=== PATIENT | female | born 1985 | race Caucasian/White ===

== ENCOUNTER 2020-12-27 16:19 | Inpatient (IN) | payer BC ==
[2020-12-27 17:34] LABS: BLOOD UREA NITROGEN,BUN 4 mg/dL (7.0-18.0); CARBON DIOXIDE,CO2 24.5 mmol/L (21.0-32.0); CHLORIDE,CL 103 mmol/L (98-107); GLUCOSE RANDOM 83 mg/dL (74-106); POTASSIUM,K 3.2 mmol/L (3.5-5.1); SODIUM,NA 139 mmol/L (136-145)
[2020-12-27] MEDS ORDERED: Misoprostol 200 MCG Tab PO PRN (18:53)
[2020-12-27] MEDS ORDERED: Sodium Chloride 0.9% 10 ML SDV IV PRN (18:53)
[2020-12-27] MEDS ORDERED: Ondansetron 4 MG/2 ML SDV IVPUSH PRN (18:53)
[2020-12-27] MEDS ORDERED: Sodium Chloride 0.9% 2.5 ML Syringe FLUSH PRN (18:53)
[2020-12-27] MEDS ORDERED: Nalbuphine 10 MG/1 ML Vial IVPUSH PRN (18:53)
[2020-12-27] MEDS ORDERED: Water For Irrigation,Sterile 1,000 ML Container IRR PRN (18:53)
[2020-12-27] MEDS ORDERED: Methylergonovine 0.2 MG/1 ML Amp IM PRN (18:53)
[2020-12-27] MEDS ORDERED: Butorphanol 1 MG/ML SDV IVPUSH PRN (18:53)
[2020-12-27] MEDS ORDERED: Sodium Chloride 0.9% 10 ML Syringe FLUSH PRN (18:53)
[2020-12-27] MEDS ORDERED: Tranexamic Acid 1,000 MG in Sodium Chloride 0.9% 100 ML IV PRN (18:53)
[2020-12-27] MEDS ORDERED: Terbutaline 1 MG/ML SDV SUBCUT PRN (18:53)
[2020-12-27] MEDS ORDERED: Lidocaine 1% 50 ML MDV INJECT PRN (18:53)
[2020-12-27] MEDS ORDERED: Carboprost Tromethamine 250 MCG/1 ML Amp IM PRN (18:53)
[2020-12-27] MEDS ORDERED: Oxytocin/0.9 % Sodium Chloride 30 UNIT/500 ML BAG IV SCH ×2 (19:00)
[2020-12-27] MEDS ORDERED: Labetalol 100 MG/20 ML MDV IVPUSH PRN (19:17)
[2020-12-27] MEDS ORDERED: Misoprostol 25 MCG (1/4 of 100 MCG) Tab VAG PRN (20:00)
--- NOTE | 2020-12-27 21:00 | PCM.LDHP ---
L&D History of Present Illness - General Date of Service: 12/27/20 Admit Problem/Dx: Patient Status Order with Admit Dx/Problem 12/27/20 16:23 Patient Status [ADT] Routine 12/27/20 18:54 Patient Status [ADT] Routine Admission Diagnosis/Problem Admission Diagnosis/Problem Source of Information: Patient History Limitations: Reports: No Limitations - History of Present Illness Introduction:: Patient presents to clinic and has been followed with mild gestational hypertension. At clinic, BP 150/90s. No protein on urine. Has received steroids for FLM all ready given the progressing hypertension. She denies headache or visual changes. She feels swollen. Notes good movement. Denies contractions. - Related Data Allergies/Adverse Reactions: Allergies Allergy/AdvReac Type Severity Reaction Status Date / Time sulfamethoxazole Allergy Rash Verified 12/27/20 16:34 [From ] trimethoprim [From ] Allergy Rash Verified 12/27/20 16:34 Home Medications: Home Meds Ferrous Sulfate, Dried [Iron] 160 mg PO DAILY 12/27/20 [History] Vits #93/Iron Fum/FA [ Formula Tablet] 1 each PO DAILY 12/27/20 [History] Past Medical History - Past Health History Medical/Surgical History: Denies Medical/Surgical History Genitourinary History: Reports: Other (See Below) (Medullary sponge kidney) - Past Surgical History HEENT Surgical History: Reports: Oral Surgery (wisdom teeth extraction) GI Surgical History: Reports: Appendectomy Female Surgical History: Reports: Breast Implant Social & Family History - Family History Family Medical History: No Pertinent Family History - Tobacco Use Tobacco Use Status *Q: Never Tobacco User - Alcohol Use Alcohol Use History: No - Recreational Drug Use Recreational Drug Use: No - Living Situation & Occupation Living situation: Reports: Occupation: Employed H&P Review of Systems - Review of Systems: Review Of Systems: Comprehensive ROS is negative, except as noted in HPI. L&D Exam - Exam Exam: See Below - Vital Signs Weight: 86.183 kg - OB Specific Movement: Active Heart Tones: Present Heart Tones per Min: 140 Heart Rate (FHR) Variability: Moderate (6-25 bmp) Presentation: Vertex - Alvares Score Alvares Score Cervix Position: Midposition Alvares Score Consistency: Medium Alvares Score Effacement: 51-70% Alvares Score Dilation: Closed Alvares Score 's Station: -3 Alvares Score Total: 4 - Exam General: Alert, Oriented Neck: Supple, Trachea Midline Lungs: Normal Respiratory Effort Cardiovascular: Regular Rate, Regular Rhythm GI/Abdominal Exam: Normal Bowel Sounds, Soft, Non-Tender Genitourinary: Normal external exam Back Exam: No: CVA Tenderness (L), CVA Tenderness (R) Extremities: Pedal Edema (1+) Skin: Warm, Dry, Intact Neurological: Cranial Nerves Intact, Reflexes Equal Bilateral DTR: 2+: Patella (L), Patella (R) Psychiatric: Alert, Normal Affect, Normal Mood - Patient Data Lab Results Last 24 hrs: Laboratory Results - last 24 hr 12/27/20 12/27/20 Range/Units 16:43 16:43 WBC 9.41 (4.0-11.0) K/uL RBC 3.69 L (4.30-5.90) M/uL Hgb 10.7 L (12.0-16.0) g/dL Hct 32.6 L (36.0-46.0) % MCV 88.3 (80.0-98.0) fL MCH 29.0 (27.0-32.0) pg MCHC 32.8 (31.0-37.0) g/dL RDW Std Deviation 45.7 (28.0-62.0) fl RDW Coeff of Matheus 14 (11.0-15.0) % Plt Count 264 (150-400) K/uL MPV 10.80 (7.40-12.00) fL Neut % (Auto) 67.0 (48.0-80.0) % Lymph % (Auto) 23.3 (16.0-40.0) % Ralls % (Auto) 8.4 (0.0-15.0) % Eos % (Auto) 1.1 (0.0-7.0) % Baso % (Auto) 0.2 (0.0-1.5) % Neut # (Auto) 6.3 H (1.4-5.7) K/uL Lymph # (Auto) 2.2 (0.6-2.4) K/uL Ralls # (Auto) 0.8 (0.0-0.8) K/uL Eos # (Auto) 0.1 (0.0-0.7) K/uL Baso # (Auto) 0.0 (0.0-0.1) K/uL Nucleated RBC % 0.0 /100WBC Nucleated RBCs # 0 K/uL Sodium 139 (136-145) mmol/L Potassium 3.2 L (3.5-5.1) mmol/L Chloride 103 (98-107) mmol/L Carbon Dioxide 24.5 (21.0-32.0) mmol/L BUN 4 L (7.0-18.0) mg/dL Creatinine 0.5 L (0.6-1.0) mg/dL Est Cr Clr Drug Dosing 119.63 mL/min Estimated GFR (MDRD) > 60.0 ml/min Glucose 83 (74-106) mg/dL Uric Acid 3.9 (2.6-7.2) mg/dL Calcium 8.8 (8.5-10.1) mg/dL Total Bilirubin 0.2 (0.2-1.0) mg/dL AST 9 L (15-37) IU/L ALT 16 (14-63) IU/L Alkaline Phosphatase 264 H (46-116) U/L Total Protein 6.5 (6.4-8.2) g/dL Albumin 2.8 L (3.4-5.0) g/dL Globulin 3.7 (2.6-4.0) g/dL Albumin/Globulin Ratio 0.8 L (0.9-1.6) Result Diagrams: 12/27/20 16:43 12/27/20 16:43 - Problem List (1) Gestational hypertension SNOMED Code(s): 385684530 ICD Code: O13.9 - GESTATIONAL HTN W/O SIGNIFICANT PROTEINURIA, UNSP TRIMESTER Status: Acute Current Visit: Yes Problem List Initiated/Reviewed/Updated: Yes Orders Last 24hrs: Active Orders 24 hr Category Date Time Status Patient Status [ADT] Routine ADT 12/27/20 18:54 Active Bedrest Bathroom Privileges [RC] ASDIRECTED Care 12/27/20 18:54 Active Communication Order [RC] ASDIRECTED Care 12/27/20 18:54 Active Communication Order [RC] ASDIRECTED Care 12/27/20 18:54 Active Communication Order [RC] ASDIRECTED Care 12/27/20 18:54 Active Communication Order [RC] PRN Care 12/27/20 18:54 Active Communication Order [RC] PRN Care 12/27/20 18:54 Active Equipment to Bedside [RC] PRN Care 12/27/20 18:57 Active Heart Tones [RC] CONTINUOUS Care 12/27/20 18:54 Active Non Stress Test [RC] PER UNIT ROUTINE Care 12/27/20 16:23 Active Height and Weight [RC] DAILY Care 12/27/20 18:54 Active Intake and Output [RC] QSHIFT Care 12/27/20 18:54 Active May Shower [RC] ASDIRECTED Care 12/27/20 18:54 Active Notify Provider [RC] PRN Care 12/27/20 18:54 Active Notify Provider [RC] PRN Care 12/27/20 18:54 Active Notify Provider [RC] PRN Care 12/27/20 18:54 Active Notify Provider [RC] STAT Care 12/27/20 18:54 Active Oxygen Therapy [RC] ASDIRECTED Care 12/27/20 18:54 Active Oxygen Therapy [RC] PRN Care 12/27/20 18:54 Active Peripheral IV Care [RC] PRN Care 12/27/20 18:53 Active Up ad Susan [RC] ASDIRECTED Care 12/27/20 16:23 Active Vaginal Exam [RC] Click to Edit Care 12/27/20 16:23 Active Vaginal Exam [RC] PRN Care 12/27/20 18:54 Active Vital Signs [RC] PER UNIT ROUTINE Care 12/27/20 16:23 Active Clear Liquid Diet [DIET] Diet 12/27/20 Dinner Active CORONAVIRUS COVID-19 NIKKY [MOLEC] Urgent Lab 12/27/20 19:50 Received RPR (SYPHILIS SERO) W/ RFLX [REF] Routine Lab 12/27/20 19:50 Received TYPE AND SCREEN [BBK] Routine Lab 12/27/20 19:50 Results Butorphanol [Stadol] Med 12/27/20 18:53 Active 1 mg IVPUSH Q1H PRN Carboprost Tromethamine [Hemabate DS] Med 12/27/20 18:53 Active 250 mcg IM ASDIRECTED PRN Labetalol [Normodyne] Med 12/27/20 19:17 Active 20 mg IVPUSH Q10M PRN Lactated Ringers [Ringers, Lactated] 1,000 ml Med 12/27/20 19:00 Active IV ASDIRECTED Lidocaine 1% [Xylocaine 1%] Med 12/27/20 18:53 Active 50 ml INJECT ONETIME PRN Methylergonovine [Methergine] Med 12/27/20 18:53 Active 0.2 mg IM ASDIRECTED PRN Nalbuphine [Nubain] Med 12/27/20 18:53 Active 10 mg IVPUSH Q1H PRN Ondansetron [Zofran] Med 12/27/20 18:53 Active 4 mg IVPUSH Q6H PRN Oxytocin/0.9 % Sodium Chloride [Oxytocin 30 Unit/500 ML Med 12/27/20 19:00 Active -NS] 30 unit in 500 ml IV TITRATE Oxytocin/0.9 % Sodium Chloride [Oxytocin 30 Unit/500 ML Med 12/27/20 19:00 Active -NS] 30 unit in 500 ml IV TITRATE Sodium Chloride 0.9% [Normal Saline] Med 12/27/20 18:53 Active 10 ml IV ASDIRECTED PRN Sodium Chloride 0.9% [Saline Flush] Med 12/27/20 18:53 Active 10 ml FLUSH ASDIRECTED PRN Sodium Chloride 0.9% [Saline Flush] Med 12/27/20 18:53 Active 2.5 ml FLUSH ASDIRECTED PRN Terbutaline [Brethine] Med 12/27/20 18:53 Active 0.25 mg SUBCUT ASDIRECTED PRN Tranexamic Acid [Cyklokapron] 1,000 mg Med 12/27/20 18:53 Active Sodium Chloride 0.9% [Normal Saline] 100 ml IV ONETIME Water For Irrigation,Sterile [Sterile Water for Med 12/27/20 18:53 Active Irrigation] 1,000 ml IRR ASDIRECTED PRN miSOPROStoL [Cytotec] Med 12/27/20 18:53 Active 200 mcg PO ONETIME PRN miSOPROStoL [Cytotec] Med 12/27/20 20:00 Active 25 mcg VAG ONETIME PRN miSOPROStoL [Cytotec] Med 12/28/20 00:01 Active 25 mcg VAG Q4H PRN Scalp Electrode [WOMSER] Per Unit Routine Oth 12/27/20 18:54 Ordered Medication Administration Instruction [OM.PC] Q3H Oth 12/27/20 19:00 Ordered Peripheral IV Insertion Adult [OM.PC] Routine Oth 12/27/20 18:54 Ordered Peripheral IV Insertion Adult [OM.PC] Routine Oth 12/27/20 18:54 Ordered Resuscitation Status Routine Resus Stat 12/27/20 16:23 Ordered Medication Orders Butorphanol Tartrate (Butorphanol 1 Mg/Ml Sdv) 1 mg IVPUSH Q1H PRN PRN Reason: Pain Carboprost Tromethamine (Carboprost Tromethamine 250 Mcg/1 Ml Amp) 250 mcg IM ASDIRECTED PRN PRN Reason: Post Hemorrhage Lactated Ringer's (Ringers, Lactated) 1,000 mls @ 150 mls/hr IV ASDIRECTED FREDO Oxytocin/Sodium Chloride (Oxytocin 30 Unit/500 Ml-Ns) 30 unit in 500 mls @ 999 mls/hr IV TITRATE FREDO Tranexamic Acid 1,000 mg/ (Sodium Chloride) 110 mls @ 660 mls/hr IV ONETIME PRN PRN Reason: Bleeding Oxytocin/Sodium Chloride (Oxytocin 30 Unit/500 Ml-Ns) 30 unit in 500 mls @ 2 mls/hr IV TITRATE FREDO; Protocol Labetalol HCl (Labetalol 100 Mg/20 Ml Mdv) 20 mg IVPUSH Q10M PRN; Protocol PRN Reason: Hypertension Lidocaine HCl (Lidocaine 1% 50 Ml Mdv) 50 ml INJECT ONETIME PRN PRN Reason: Laceration repair Methylergonovine Maleate (Methylergonovine 0.2 Mg/1 Ml Amp) 0.2 mg IM ASDIRECTED PRN PRN Reason: Post Hemorrhage Misoprostol (Misoprostol 200 Mcg Tab) 200 mcg PO ONETIME PRN PRN Reason: Post Hemorrhage Misoprostol (Misoprostol 25 Mcg (1/4 Of 100 Mcg) Tab) 25 mcg VAG ONETIME PRN PRN Reason: Cervical Ripening Last Admin: 12/27/20 20:24 Dose: 25 mcg Documented by: MICHELLE Misoprostol (Misoprostol 25 Mcg (1/4 Of 100 Mcg) Tab) 25 mcg VAG Q4H PRN PRN Reason: Cervical Ripening Nalbuphine HCl (Nalbuphine 10 Mg/1 Ml Vial) 10 mg IVPUSH Q1H PRN PRN Reason: Pain (severe 7-10) Ondansetron HCl (Ondansetron 4 Mg/2 Ml Sdv) 4 mg IVPUSH Q6H PRN PRN Reason: Nausea/Vomiting Sodium Chloride (Sodium Chloride 0.9% 10 Ml Syringe) 10 ml FLUSH ASDIRECTED PRN PRN Reason: Keep Vein Open Sodium Chloride (Sodium Chloride 0.9% 2.5 Ml Syringe) 2.5 ml FLUSH ASDIRECTED PRN PRN Reason: Keep Vein Open Sodium Chloride (Sodium Chloride 0.9% 10 Ml Sdv) 10 ml IV ASDIRECTED PRN PRN Reason: IV Use Sterile Water (Water For Irrigation,Sterile 1,000 Ml Container) 1,000 ml IRR ASDIRECTED PRN PRN Reason: delivery Terbutaline Sulfate (Terbutaline 1 Mg/Ml Sdv) 0.25 mg SUBCUT ASDIRECTED PRN PRN Reason: Tacysystole Assessment/Plan Comment:: 36/6 week IUP Gestational hypertension With serial BP monitoring, BPs remains 120-160s/80-90s. Has received steroids for lung maturity. Given persistently elevated BPs and early term gestationa--feel best to proceed with induction of labor. UA has no protein. CMP reassuring other than mild hypokalemia. Hemoglobin and platelets are reassuring. Begin cytotec induction. Treat for severe BP range. Risks of induction discussed with patient. She agrees to plan of care.
[2020-12-28] MEDS: Misoprostol 25 MCG (1/4 of 100 MCG) Tab VAG PRN ×2 (00:35→04:33)
[2020-12-28] MEDS ORDERED: Oxytocin/0.9 % Sodium Chloride 30 UNIT/500 ML BAG ONE (07:25)
[2020-12-28] MEDS: Lactated Ringers 1,000 ML IV SCH ×2 (09:30→10:17)
[2020-12-28] MEDS ORDERED: Ropivacaine HCl/PF 100 ML ONE (09:56)
[2020-12-28] MEDS ORDERED: fentaNYL 100 MCG/2 ML SDV ONE (09:56)
--- NOTE | 2020-12-28 10:21 | PCM.PREANE ---
Preanesthetic Assessment - Anesthesia/Transfusion/Family Hx Anesthesia History: Prior Anesthesia Without Reaction Family History of Anesthesia Reaction: No Transfusion History: No Prior Transfusion(s) - Physical Assessment NPO Status Date: 12/28/20 NPO Status Time: 05:00 Height: 1.55 m Weight: 86.183 kg ASA Class: 2 - Lab Values: Laboratory Last Values WBC 9.41 K/uL (4.0-11.0) 12/27/20 16:43 RBC 3.69 M/uL (4.30-5.90) L 12/27/20 16:43 Hgb 10.7 g/dL (12.0-16.0) L 12/27/20 16:43 Hct 32.6 % (36.0-46.0) L 12/27/20 16:43 MCV 88.3 fL (80.0-98.0) 12/27/20 16:43 MCH 29.0 pg (27.0-32.0) 12/27/20 16:43 MCHC 32.8 g/dL (31.0-37.0) 12/27/20 16:43 RDW Std Deviation 45.7 fl (28.0-62.0) 12/27/20 16:43 RDW Coeff of Matheus 14 % (11.0-15.0) 12/27/20 16:43 Plt Count 264 K/uL (150-400) 12/27/20 16:43 MPV 10.80 fL (7.40-12.00) 12/27/20 16:43 Neut % (Auto) 67.0 % (48.0-80.0) 12/27/20 16:43 Lymph % (Auto) 23.3 % (16.0-40.0) 12/27/20 16:43 Snyder % (Auto) 8.4 % (0.0-15.0) 12/27/20 16:43 Eos % (Auto) 1.1 % (0.0-7.0) 12/27/20 16:43 Baso % (Auto) 0.2 % (0.0-1.5) 12/27/20 16:43 Neut # (Auto) 6.3 K/uL (1.4-5.7) H 12/27/20 16:43 Lymph # (Auto) 2.2 K/uL (0.6-2.4) 12/27/20 16:43 Snyder # (Auto) 0.8 K/uL (0.0-0.8) 12/27/20 16:43 Eos # (Auto) 0.1 K/uL (0.0-0.7) 12/27/20 16:43 Baso # (Auto) 0.0 K/uL (0.0-0.1) 12/27/20 16:43 Nucleated RBC % 0.0 /100WBC 12/27/20 16:43 Nucleated RBCs # 0 K/uL 12/27/20 16:43 Sodium 139 mmol/L (136-145) 12/27/20 16:43 Potassium 3.2 mmol/L (3.5-5.1) L 12/27/20 16:43 Chloride 103 mmol/L (98-107) 12/27/20 16:43 Carbon Dioxide 24.5 mmol/L (21.0-32.0) 12/27/20 16:43 BUN 4 mg/dL (7.0-18.0) L 12/27/20 16:43 Creatinine 0.5 mg/dL (0.6-1.0) L 12/27/20 16:43 Est Cr Clr Drug Dosing 119.63 mL/min 12/27/20 16:43 Estimated GFR (MDRD) > 60.0 ml/min 12/27/20 16:43 Glucose 83 mg/dL (74-106) 12/27/20 16:43 Uric Acid 3.9 mg/dL (2.6-7.2) 12/27/20 16:43 Calcium 8.8 mg/dL (8.5-10.1) 12/27/20 16:43 Total Bilirubin 0.2 mg/dL (0.2-1.0) 12/27/20 16:43 AST 9 IU/L (15-37) L 12/27/20 16:43 ALT 16 IU/L (14-63) 12/27/20 16:43 Alkaline Phosphatase 264 U/L (46-116) H 12/27/20 16:43 Total Protein 6.5 g/dL (6.4-8.2) 12/27/20 16:43 Albumin 2.8 g/dL (3.4-5.0) L 12/27/20 16:43 Globulin 3.7 g/dL (2.6-4.0) 12/27/20 16:43 Albumin/Globulin Ratio 0.8 (0.9-1.6) L 12/27/20 16:43 SARS-CoV-2 RNA (NIKKY) NEGATIVE (NEGATIVE) 12/27/20 19:50 Blood Type O POSITIVE 12/27/20 19:50 Antibody Screen NEGATIVE 12/27/20 19:50 - Allergies Allergies/Adverse Reactions: Allergies Allergy/AdvReac Type Severity Reaction Status Date / Time sulfamethoxazole Allergy Rash Verified 12/27/20 16:34 [From ] trimethoprim [From ] Allergy Rash Verified 12/27/20 16:34 - Acknowledgements Anesthesia Type Planned: Epidural Pt an Appropriate Candidate for the Planned Anesthesia: Yes Alternatives and Risks of Anesthesia Discussed w Pt/Guardian: Yes Pt/Guardian Understands and Agrees with Anesthesia Plan: Yes PreAnesthesia Questionnaire - Past Health History Medical/Surgical History: Denies Medical/Surgical History Genitourinary History: Reports: Other (See Below) Other Genitourinary History: History of medullary sponge kidney 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 OB/BYN History: Gestational Hypertension - Infectious Disease History Infectious Disease History: Reports: Chicken Pox - Past Surgical History HEENT Surgical History: Reports: Oral Surgery Other HEENT Surgeries/Procedures: [place] teeth removed GI Surgical History: Reports: Appendectomy Female Surgical History: Reports: Breast Implant Other Female Surgeries/Procedures: Breast Augmentation - SUBSTANCE USE Tobacco Use Status *Q: Never Tobacco User Tobacco Use Within Last Twelve Months: No Second Hand Smoke Exposure: No Recreational Drug Use History: No - HOME MEDS Home Medications: Home Meds Ferrous Sulfate, Dried [Iron] 160 mg PO DAILY 12/27/20 [History] Vits #93/Iron Fum/FA [ Formula Tablet] 1 each PO DAILY 12/27/20 [History] - CURRENT (IN HOUSE) MEDS Current Meds: Current Medications Butorphanol Tartrate (Butorphanol 1 Mg/Ml Sdv) 1 mg IVPUSH Q1H PRN PRN Reason: Pain Carboprost Tromethamine (Carboprost Tromethamine 250 Mcg/1 Ml Amp) 250 mcg IM ASDIRECTED PRN PRN Reason: Post Hemorrhage Lactated Ringer's (Ringers, Lactated) 1,000 mls @ 150 mls/hr IV ASDIRECTED FREDO Last Admin: 12/28/20 10:17 Dose: 999 mls/hr Documented by: Oxytocin/Sodium Chloride (Oxytocin 30 Unit/500 Ml-Ns) 30 unit in 500 mls @ 999 mls/hr IV TITRATE FREDO Tranexamic Acid 1,000 mg/ (Sodium Chloride) 110 mls @ 660 mls/hr IV ONETIME PRN PRN Reason: Bleeding Oxytocin/Sodium Chloride (Oxytocin 30 Unit/500 Ml-Ns) 30 unit in 500 mls @ 2 mls/hr IV TITRATE FREDO; Protocol Labetalol HCl (Labetalol 100 Mg/20 Ml Mdv) 20 mg IVPUSH Q10M PRN; Protocol PRN Reason: Hypertension Lidocaine HCl (Lidocaine 1% 50 Ml Mdv) 50 ml INJECT ONETIME PRN PRN Reason: Laceration repair Methylergonovine Maleate (Methylergonovine 0.2 Mg/1 Ml Amp) 0.2 mg IM ASDIRECTED PRN PRN Reason: Post Hemorrhage Misoprostol (Misoprostol 200 Mcg Tab) 200 mcg PO ONETIME PRN PRN Reason: Post Hemorrhage Misoprostol (Misoprostol 25 Mcg (1/4 Of 100 Mcg) Tab) 25 mcg VAG ONETIME PRN PRN Reason: Cervical Ripening Last Admin: 12/27/20 20:24 Dose: 25 mcg Documented by: Misoprostol (Misoprostol 25 Mcg (1/4 Of 100 Mcg) Tab) 25 mcg VAG Q4H PRN PRN Reason: Cervical Ripening Last Admin: 12/28/20 04:33 Dose: 25 mcg Documented by: Nalbuphine HCl (Nalbuphine 10 Mg/1 Ml Vial) 10 mg IVPUSH Q1H PRN PRN Reason: Pain (severe 7-10) Ondansetron HCl (Ondansetron 4 Mg/2 Ml Sdv) 4 mg IVPUSH Q6H PRN PRN Reason: Nausea/Vomiting Sodium Chloride (Sodium Chloride 0.9% 10 Ml Syringe) 10 ml FLUSH ASDIRECTED PRN PRN Reason: Keep Vein Open Sodium Chloride (Sodium Chloride 0.9% 2.5 Ml Syringe) 2.5 ml FLUSH ASDIRECTED PRN PRN Reason: Keep Vein Open Sodium Chloride (Sodium Chloride 0.9% 10 Ml Sdv) 10 ml IV ASDIRECTED PRN PRN Reason: IV Use Sterile Water (Water For Irrigation,Sterile 1,000 Ml Container) 1,000 ml IRR ASDIRECTED PRN PRN Reason: delivery Terbutaline Sulfate (Terbutaline 1 Mg/Ml Sdv) 0.25 mg SUBCUT ASDIRECTED PRN PRN Reason: Tacysystole Discontinued Medications Fentanyl (Fentanyl 100 Mcg/2 Ml Sdv) Confirm Administered Dose 100 mcg .ROUTE .STK-MED ONE Stop: 12/28/20 09:57 Oxytocin/Sodium Chloride (Oxytocin 30 Unit/500 Ml-Ns) Confirm Administered Dose 30 unit in 500 mls @ as directed .ROUTE .STK-MED ONE Stop: 12/28/20 07:26 Ropivacaine (Naropin 0.2%) Confirm Administered Dose 100 mls @ as directed .ROUTE .STK-MED ONE Stop: 12/28/20 09:57
--- NOTE | 2020-12-28 10:24 | PCM.PRNOTE ---
- Free Text/Narrative Note: Anes Note Patient requests epidural for L&D. Sitting position. Level L3-L4 midline approach. Sterile technique. Chloraprep scrub to lumbar area. Sterile fenestrated drape applied. Epidural space easily achieved single attempt using CED technique. CED at 3 cm. Epidural cath threaded 5 cm with ease. Cath secured a t skin using sterile clear adhesive dressing. 1010 Test 3 cc 1.5% lido with epi negative. 1014 Load 10 cc 0.2% ropivicaine with 1 mcg cc fentanyl in slow divided doses. 1018 Pump started wtih 90 cc same solution. Rate is 8 cc hr with 6 cc q 20 min prn bolus. Tricia well. 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
[2020-12-28] MEDS ORDERED: Witch Hazel Medicated Pads 40/Jar TOP PRN (18:51)
[2020-12-28] MEDS ORDERED: Benzocaine/Menthol 20%-0.5% Spray 78 GM Cannister TOP PRN (18:51)
[2020-12-28] MEDS ORDERED: oxyCODONE 5 MG Tab PO PRN (18:51)
[2020-12-28] MEDS ORDERED: Acetaminophen 500 MG Tab PO PRN (18:51)
[2020-12-28] MEDS ORDERED: Lanolin 100% Cream 7 GM Tube TOP PRN (18:51)
--- NOTE | 2020-12-28 18:55 | PCM.DEL ---
L & D Note - General Info Date of Service: 12/28/20 - Delivery Note Labor: Augmented by Oxytocin, Induced by ARM, Induced by Oxytocin Cervical Ripening Method: Misoprostil Delivery Outcome: Livebirth Infant Delivery Method: Spontaneous Vaginal Delivery-Single Presentation: Left Occiput Anterior (BARRERA) Nuchal Cord: None Anesthesia Type: Combined Spinal Epidural Amniotic Fluid Description: Clear Episiotomy Type: None Laceration: None Cord: 3 Vessels Estimated Blood Loss: 100 Resuscitation Needed: No Delivery Comments (Free Text/Narrative):: Live male delivered at 1802 pending weight 3370g 3VC - General Info Date of Service: 12/28/20 - Patient Data Weight - Most Recent: 86.183 kg Lab Results Last 24 Hours: Laboratory Results - last 24 hr 12/27/20 12/27/20 Range/Units 19:50 19:50 SARS-CoV-2 RNA (NIKKY) NEGATIVE (NEGATIVE) Blood Type O POSITIVE Antibody Screen NEGATIVE Med Orders - Current: Current Medications Butorphanol Tartrate (Butorphanol 1 Mg/Ml Sdv) 1 mg IVPUSH Q1H PRN PRN Reason: Pain Carboprost Tromethamine (Carboprost Tromethamine 250 Mcg/1 Ml Amp) 250 mcg IM ASDIRECTED PRN PRN Reason: Post Hemorrhage Lactated Ringer's (Ringers, Lactated) 1,000 mls @ 150 mls/hr IV ASDIRECTED FREDO Last Admin: 12/28/20 10:17 Dose: 999 mls/hr Documented by: Oxytocin/Sodium Chloride (Oxytocin 30 Unit/500 Ml-Ns) 30 unit in 500 mls @ 999 mls/hr IV TITRATE FREDO Tranexamic Acid 1,000 mg/ (Sodium Chloride) 110 mls @ 660 mls/hr IV ONETIME PRN PRN Reason: Bleeding Oxytocin/Sodium Chloride (Oxytocin 30 Unit/500 Ml-Ns) 30 unit in 500 mls @ 2 mls/hr IV TITRATE FREDO; Protocol Last Titration: 12/28/20 14:15 Dose: 4 munits/min, 4 mls/hr Documented by: Labetalol HCl (Labetalol 100 Mg/20 Ml Mdv) 20 mg IVPUSH Q10M PRN; Protocol PRN Reason: Hypertension Misoprostol (Misoprostol 200 Mcg Tab) 200 mcg PO ONETIME PRN PRN Reason: Post Hemorrhage Ondansetron HCl (Ondansetron 4 Mg/2 Ml Sdv) 4 mg IVPUSH Q6H PRN PRN Reason: Nausea/Vomiting Sodium Chloride (Sodium Chloride 0.9% 10 Ml Syringe) 10 ml FLUSH ASDIRECTED PRN PRN Reason: Keep Vein Open Sodium Chloride (Sodium Chloride 0.9% 2.5 Ml Syringe) 2.5 ml FLUSH ASDIRECTED PRN PRN Reason: Keep Vein Open Sodium Chloride (Sodium Chloride 0.9% 10 Ml Sdv) 10 ml IV ASDIRECTED PRN PRN Reason: IV Use Sterile Water (Water For Irrigation,Sterile 1,000 Ml Container) 1,000 ml IRR ASDIRECTED PRN PRN Reason: delivery Discontinued Medications Fentanyl (Fentanyl 100 Mcg/2 Ml Sdv) Confirm Administered Dose 100 mcg .ROUTE .STK-MED ONE Stop: 12/28/20 09:57 Oxytocin/Sodium Chloride (Oxytocin 30 Unit/500 Ml-Ns) Confirm Administered Dose 30 unit in 500 mls @ as directed .ROUTE .STPicfair-MED ONE Stop: 12/28/20 07:26 Ropivacaine (Naropin 0.2%) Confirm Administered Dose 100 mls @ as directed .ROUTE .STK-MED ONE Stop: 12/28/20 09:57 Lidocaine HCl (Lidocaine 1% 50 Ml Mdv) 50 ml INJECT ONETIME PRN PRN Reason: Laceration repair Methylergonovine Maleate (Methylergonovine 0.2 Mg/1 Ml Amp) 0.2 mg IM ASDIRECTED PRN PRN Reason: Post Hemorrhage Misoprostol (Misoprostol 25 Mcg (1/4 Of 100 Mcg) Tab) 25 mcg VAG ONETIME PRN PRN Reason: Cervical Ripening Last Admin: 12/27/20 20:24 Dose: 25 mcg Documented by: Misoprostol (Misoprostol 25 Mcg (1/4 Of 100 Mcg) Tab) 25 mcg VAG Q4H PRN PRN Reason: Cervical Ripening Last Admin: 12/28/20 04:33 Dose: 25 mcg Documented by: Nalbuphine HCl (Nalbuphine 10 Mg/1 Ml Vial) 10 mg IVPUSH Q1H PRN PRN Reason: Pain (severe 7-10) Terbutaline Sulfate (Terbutaline 1 Mg/Ml Sdv) 0.25 mg SUBCUT ASDIRECTED PRN PRN Reason: Tacysystole - Problem List & Annotations (1) Gestational hypertension SNOMED Code(s): 903698275 Code(s): O13.9 - GESTATIONAL HTN W/O SIGNIFICANT PROTEINURIA, UNSP TRIMESTER Status: Acute Current Visit: Yes - Problem List Review Problem List Initiated/Reviewed/Updated: Yes - My Orders Last 24 Hours: My Active Orders 12/28/20 18:51 Patient Status [ADT] Routine May Shower [RC] ASDIRECTED Up ad Susan [RC] ASDIRECTED Vital Signs [RC] PER UNIT ROUTINE Acetaminophen [Tylenol Extra Strength] 1,000 mg PO Q4H PRN Acetaminophen [Tylenol Extra Strength] 500 mg PO Q4H PRN Benzocaine/Menthol [Dermoplast Pain Relief 20%-0.5% Timblin] 78 gm TOP ASDIRECTED PRN Docusate Sodium [Colace] 100 mg PO BID PRN Ibuprofen [Motrin] 400 mg PO Q4H PRN Ibuprofen [Motrin] 800 mg PO Q6H PRN Lanolin [Lansinoh HPA] See Dose Instructions TOP ASDIRECTED PRN bisacodyL [Dulcolax] 10 mg RECTAL ONETIME PRN oxyCODONE 5 mg PO Q2H PRN witch Dennis [Tucks] 1 pad TOP ASDIRECTED PRN Assess Lochia [WOMSER] Per Unit Routine Assess Uterine Involution [WOMSER] Per Unit Routine Peripheral IV Discontinue [OM.PC] Routine Resuscitation Status Routine 12/29/20 05:11 HEMOGLOBIN/HEMATOCRIT,HH [HEME] Timed - Plan Plan:: 35yo [id number] s/p PP0 GHTN , no BPs in severe range
[2020-12-28] MEDS ORDERED: Bisacodyl 10 MG Supp RECTAL PRN (20:20)
[2020-12-28] MEDS: Ibuprofen 800 MG Tab PO PRN (22:07)
[2020-12-28] MEDS: Docusate Sodium 100 MG Cap PO PRN (22:08)
[2020-12-29] MEDS: Acetaminophen 500 MG Tab PO PRN ×2 (02:13→17:36)
--- NOTE | 2020-12-29 07:14 | PCM48HPAN ---
Post Anesthesia Note - EVALUATION WITHIN 48HRS OF ANESTHETIC Vital Signs in Normal Range: Yes Patient Participated in Evaluation: Yes Respiratory Function Stable: Yes Airway Patent: Yes Cardiovascular Function Stable: Yes Hydration Status Stable: Yes Pain Control Satisfactory: Yes (Reports abd cramping to 8/10 at times, but well- controlled to 3/10 c/ Rx) Nausea and Vomiting Control Satisfactory: Yes (Taking PO well, denies nausea.) Mental Status Recovered: Yes Vital Signs: Last Vital Signs Temp 36.5 C 12/29/20 04:30 Pulse 73 12/29/20 04:30 Resp 16 12/29/20 04:30 BP 117/69 12/29/20 04:30 Pulse Ox 97 12/29/20 02:00 - COMMENTS/OBSERVATIONS Free Text/Narrative:: Ambulating independently. Reports full return of strength and sensation to BLE.
--- NOTE | 2020-12-29 07:52 | OR ---
SURGEON: ART STOUTUZOADIAWE DATE OF PROCEDURE: 12/28/2020 PREOPERATIVE DIAGNOSIS: 35-year-old G3, P2-0-0-2, at 37 weeks 0 days, admitted for induction of labor secondary to gestational hypertension. POSTOPERATIVE DIAGNOSIS: 35-year-old G3, P2-0-0-2, at 37 weeks 0 days, admitted for induction of labor secondary to gestational hypertension. PROCEDURE: Normal spontaneous vaginal delivery. ESTIMATED BLOOD LOSS: 100 mL. INTRAVENOUS FLUIDS: Pitocin running. ANESTHESIA: Epidural. NOTES AND FINDINGS: A live male delivered at 1802. score 2, 7 ,9 . Weight is 3370 g. BRIEF HISTORY ABOUT THE PATIENT: She was a patient of Dr. Mcgee, was receiving care. She was noted to have some elevated blood pressures from 130s to 140s during later phase in third trimester. The patient was 37 weeks. PIH labs were done and were negative. A protein to creatinine ratio also was negative. As a result of term with gestational hypertension, the patient was kept for induction of labor. DESCRIPTION OF PROCEDURE: Induction of labor was started with Cytotec. She received three doses of Cytotec after which she had an AROM.She subsequently had then a normal labor course. During her labor course, she had occasional variables and late decels which improved with positioning and oxygen. When the patient was fully dilated, she was encouraged to push. The patient was noted to have baby in occiput posterior position. Head was attempted to be rotated. With the patient's pushing efforts, she pushed for about 2 hours. There was descent of the head noted and the 's head was delivered. After the head was delivered in OA , anterior and posterior shoulders were delivered, after which the baby was placed on maternal abdomen. Immediate cord clamping was done. The infant was handed over to the awaiting stone processing machine operator and nursery nurse. The placenta was then delivered via controlled cord traction. The perineum was inspected, noted to be hemostatic. Uterus was noted to be firm. Cord blood gases were obtained after delivery of the baby. The patient tolerated the procedure well. All instrument and pad counts were correct x2. AMINA / GIBRAN /[id number] [facility] MEDICAL CENTERKaleb
[2020-12-29] MEDS: Docusate Sodium 100 MG Cap PO PRN ×2 (08:35→21:36)
[2020-12-29] MEDS: Ibuprofen 800 MG Tab PO PRN ×3 (08:35→21:37)
--- NOTE | 2020-12-29 08:41 | PCM.PNPP ---
- General Info Date of Service: 12/29/20 Functional Status: Reports: Pain Controlled, Tolerating Diet, Ambulating, Urinating - Review of Systems General: Reports: Fatigue. Denies: Fever, Weakness Pulmonary: Denies: Shortness of Breath Cardiovascular: Denies: Chest Pain, Palpitations, Lightheadedness Gastrointestinal: Denies: Abdominal Pain, Nausea, Vomiting Genitourinary: Denies: Flank Pain Musculoskeletal: Reports: No Symptoms Skin: Reports: No Symptoms Neurological: Reports: No Symptoms Psychiatric: Reports: No Symptoms - General Info Date of Service: 12/29/20 - Patient Data Vital Signs - Most Recent: Last Vital Signs Temp 36.5 C 12/29/20 04:30 Pulse 73 12/29/20 04:30 Resp 16 12/29/20 04:30 BP 117/69 12/29/20 04:30 Pulse Ox 97 12/29/20 02:00 Weight - Most Recent: 86.183 kg Lab Results - Last 24 Hours: Laboratory Results - last 24 hr 12/28/20 12/28/20 12/29/20 Range/Units 18:02 18:02 06:40 Hgb 10.7 L (12.0-16.0) g/dL Hct 32.8 L (36.0-46.0) % Cord ABG pH 7.203 (7.18-7.38) Cord ABG Base Excess -9 (-10--2) Cord VBG pH 7.108 L (7.25-7.45) Cord VBG Base Excess -12 L (-10--2) Med Orders - Current: Current Medications Acetaminophen (Acetaminophen 500 Mg Tab) 500 mg PO Q4H PRN PRN Reason: Pain Acetaminophen (Acetaminophen 500 Mg Tab) 1,000 mg PO Q4H PRN PRN Reason: Pain Last Admin: 12/29/20 02:13 Dose: 1,000 mg Documented by: Benzocaine/Menthol (Benzocaine/Menthol 20%-0.5% [place] 78 Gm Cannister) 78 gm TOP ASDIRECTED PRN PRN Reason: Perineal Comfort Measure Last Admin: 12/28/20 22:06 Dose: 1 applic Documented by: Bisacodyl (Bisacodyl 10 Mg Supp) 10 mg RECTAL ONETIME PRN PRN Reason: Constipation Butorphanol Tartrate (Butorphanol 1 Mg/Ml Sdv) 1 mg IVPUSH Q1H PRN PRN Reason: Pain Carboprost Tromethamine (Carboprost Tromethamine 250 Mcg/1 Ml Amp) 250 mcg IM ASDIRECTED PRN PRN Reason: Post Hemorrhage Docusate Sodium (Docusate Sodium 100 Mg Cap) 100 mg PO BID PRN PRN Reason: Constipation Last Admin: 12/29/20 08:35 Dose: 100 mg Documented by: Emollient Ointment (Lanolin 100% Cream 7 Gm Tube) 0 gm TOP ASDIRECTED PRN PRN Reason: Sore Nipples Lactated Ringer's (Ringers, Lactated) 1,000 mls @ 150 mls/hr IV ASDIRECTED FREDO Last Admin: 12/28/20 10:17 Dose: 999 mls/hr Documented by: Oxytocin/Sodium Chloride (Oxytocin 30 Unit/500 Ml-Ns) 30 unit in 500 mls @ 999 mls/hr IV TITRATE FREDO Tranexamic Acid 1,000 mg/ (Sodium Chloride) 110 mls @ 660 mls/hr IV ONETIME PRN PRN Reason: Bleeding Oxytocin/Sodium Chloride (Oxytocin 30 Unit/500 Ml-Ns) 30 unit in 500 mls @ 2 mls/hr IV TITRATE FREDO; Protocol Last Titration: 12/28/20 18:05 Dose: 999 munits/min, 999 mls/hr Documented by: Ibuprofen (Ibuprofen 400 Mg Tab) 400 mg PO Q4H PRN PRN Reason: Pain Ibuprofen (Ibuprofen 800 Mg Tab) 800 mg PO Q6H PRN PRN Reason: Pain Last Admin: 12/29/20 08:35 Dose: 800 mg Documented by: Labetalol HCl (Labetalol 100 Mg/20 Ml Mdv) 20 mg IVPUSH Q10M PRN; Protocol PRN Reason: Hypertension Misoprostol (Misoprostol 200 Mcg Tab) 200 mcg PO ONETIME PRN PRN Reason: Post Hemorrhage Ondansetron HCl (Ondansetron 4 Mg/2 Ml Sdv) 4 mg IVPUSH Q6H PRN PRN Reason: Nausea/Vomiting Oxycodone HCl (Oxycodone 5 Mg Tab) 5 mg PO Q2H PRN PRN Reason: Pain Sodium Chloride (Sodium Chloride 0.9% 10 Ml Syringe) 10 ml FLUSH ASDIRECTED PRN PRN Reason: Keep Vein Open Sodium Chloride (Sodium Chloride 0.9% 2.5 Ml Syringe) 2.5 ml FLUSH ASDIRECTED PRN PRN Reason: Keep Vein Open Sodium Chloride (Sodium Chloride 0.9% 10 Ml Sdv) 10 ml IV ASDIRECTED PRN PRN Reason: IV Use Sterile Water (Water For Irrigation,Sterile 1,000 Ml Container) 1,000 ml IRR ASDIRECTED PRN PRN Reason: delivery Witch Nancy (Witch Nancy Medicated Pads 40/Jar) 1 pad TOP ASDIRECTED PRN PRN Reason: comfort care Last Admin: 12/28/20 22:05 Dose: 1 applic Documented by: Discontinued Medications Fentanyl (Fentanyl 100 Mcg/2 Ml Sdv) Confirm Administered Dose 100 mcg .ROUTE .STK-MED ONE Stop: 12/28/20 09:57 Oxytocin/Sodium Chloride (Oxytocin 30 Unit/500 Ml-Ns) Confirm Administered Dose 30 unit in 500 mls @ as directed .ROUTE .STK-MED ONE Stop: 12/28/20 07:26 Ropivacaine (Naropin 0.2%) Confirm Administered Dose 100 mls @ as directed .ROUTE .STK-MED ONE Stop: 12/28/20 09:57 Lidocaine HCl (Lidocaine 1% 50 Ml Mdv) 50 ml INJECT ONETIME PRN PRN Reason: Laceration repair Methylergonovine Maleate (Methylergonovine 0.2 Mg/1 Ml Amp) 0.2 mg IM ASDIRECTED PRN PRN Reason: Post Hemorrhage Misoprostol (Misoprostol 25 Mcg (1/4 Of 100 Mcg) Tab) 25 mcg VAG ONETIME PRN PRN Reason: Cervical Ripening Last Admin: 12/27/20 20:24 Dose: 25 mcg Documented by: Misoprostol (Misoprostol 25 Mcg (1/4 Of 100 Mcg) Tab) 25 mcg VAG Q4H PRN PRN Reason: Cervical Ripening Last Admin: 12/28/20 04:33 Dose: 25 mcg Documented by: Nalbuphine HCl (Nalbuphine 10 Mg/1 Ml Vial) 10 mg IVPUSH Q1H PRN PRN Reason: Pain (severe 7-10) Terbutaline Sulfate (Terbutaline 1 Mg/Ml Sdv) 0.25 mg SUBCUT ASDIRECTED PRN PRN Reason: Tacysystole - Interaction Support Person: - Recovery Exam Fundal Tone: Firm Fundal Level: 1 Fingerbreadths Below Umbilicus Fundal Placement: Midline Lochia Amount: Small Lochia Color: Rubra/Red Perineum Description: Edematous Episiotomy/Laceration: None Bladder Status: Voiding Urinary Elimination: Voided - Exam General: Alert, Oriented Lungs: Normal Respiratory Effort Cardiovascular: Regular Rate, Regular Rhythm GI/Abdominal Exam: Normal Bowel Sounds, Soft Extremities: Pedal Edema (1+). No: Agatha's Sign Skin: Warm, Dry, Intact Neurological: No New Focal Deficit Psy/Mental Status: Alert, Normal Affect, Normal Mood - Problem List & Annotations (1) Gestational hypertension SNOMED Code(s): 799375060 Code(s): O13.9 - GESTATIONAL HTN W/O SIGNIFICANT PROTEINURIA, UNSP TRIMESTER Status: Acute Current Visit: Yes (2) Vaginal delivery SNOMED Code(s): 418042173 Code(s): O80 - ENCOUNTER FOR FULL-TERM UNCOMPLICATED DELIVERY Status: Acute Current Visit: Yes - Problem List Review Problem List Initiated/Reviewed/Updated: Yes - Assessment Assessment:: PPD 1 status post Gestational HTN - Plan Plan:: Patient doing well overall, just tired. BPs are normal range for the most part. She denies headaches or visual changes. Monitor today, continue PP cares. If remains stable, anticipate discharge in am. She will monitor BP at home and call if >140/90
[2020-12-29 18:49] LABS: BLOOD UREA NITROGEN,BUN 6 mg/dL (7.0-18.0); CARBON DIOXIDE,CO2 26.3 mmol/L (21.0-32.0); CHLORIDE,CL 103 mmol/L (98-107); GLUCOSE RANDOM 93 mg/dL (74-106); POTASSIUM,K 3.1 mmol/L (3.5-5.1); SODIUM,NA 137 mmol/L (136-145)
[2020-12-29] MEDS: NIFEdipine 30 MG Tab.ER PO SCH (23:58)
[2020-12-30] MEDS ORDERED: Potassium Chloride Riders 40 MEQ in Premix Bag 1 BAG IV SCH (01:00)
[2020-12-30] MEDS: Acetaminophen 500 MG Tab PO PRN ×3 (03:55→15:04)
--- NOTE | 2020-12-30 08:38 | PCM.PNPP ---
- General Info Date of Service: 12/30/20 Admission Dx/Problem (Free Text): Patient Status Order with Admit Dx/Problem 12/27/20 16:23 Patient Status [ADT] Routine 12/27/20 18:54 Patient Status [ADT] Routine Admission Diagnosis/Problem Admission Diagnosis/Problem Subjective Update: Resting comfortably in bed. Reports occasional episodes chills overnight. Highest temperature was 100.3. Lochia decreasing. Ambulating and voiding without difficulty. Denies headaches, visual changes, right upper quadrant pain, pelvic pain, dysuria or malodorous discharge. Bottlefeeding baby. - General Info Date of Service: 12/30/20 - Patient Data Vital Signs - Most Recent: Last Vital Signs Temp 99.8 F 12/30/20 07:45 Pulse 109 H 12/30/20 07:45 Resp 14 12/30/20 07:45 BP 152/89 H 12/30/20 07:45 Pulse Ox 99 12/30/20 04:00 Weight - Most Recent: 190 lb Lab Results - Last 24 Hours: Laboratory Results - last 24 hr 12/27/20 12/29/20 12/29/20 Range/Units 19:50 16:11 16:11 WBC 15.00 H (4.0-11.0) K/uL RBC 3.50 L (4.30-5.90) M/uL Hgb 10.0 L (12.0-16.0) g/dL Hct 30.8 L (36.0-46.0) % MCV 88.0 (80.0-98.0) fL MCH 28.6 (27.0-32.0) pg MCHC 32.5 (31.0-37.0) g/dL RDW Std Deviation 42.1 (28.0-62.0) fl RDW Coeff of Matheus 14 (11.0-15.0) % Plt Count 240 (150-400) K/uL MPV 10.80 (7.40-12.00) fL Sodium 137 (136-145) mmol/L Potassium 3.1 L (3.5-5.1) mmol/L Chloride 103 (98-107) mmol/L Carbon Dioxide 26.3 (21.0-32.0) mmol/L BUN 6 L (7.0-18.0) mg/dL Creatinine 0.6 (0.6-1.0) mg/dL Est Cr Clr Drug Dosing 99.69 mL/min Estimated GFR (MDRD) > 60.0 ml/min Glucose 93 (74-106) mg/dL Uric Acid 4.2 (2.6-7.2) mg/dL Calcium 8.2 L (8.5-10.1) mg/dL Total Bilirubin 0.2 (0.2-1.0) mg/dL AST 18 (15-37) IU/L ALT 20 (14-63) IU/L Alkaline Phosphatase 215 H (46-116) U/L Total Protein 6.1 L (6.4-8.2) g/dL Albumin 2.2 L (3.4-5.0) g/dL Globulin 3.9 (2.6-4.0) g/dL Albumin/Globulin Ratio 0.6 L (0.9-1.6) RPR Non-Reac (Non-Reac) Med Orders - Current: Current Medications Acetaminophen (Acetaminophen 500 Mg Tab) 500 mg PO Q4H PRN PRN Reason: Pain Acetaminophen (Acetaminophen 500 Mg Tab) 1,000 mg PO Q4H PRN PRN Reason: Pain Last Admin: 12/30/20 03:55 Dose: 1,000 mg Documented by: Benzocaine/Menthol (Benzocaine/Menthol 20%-0.5% [place] 78 Gm Cannister) 78 gm TOP ASDIRECTED PRN PRN Reason: Perineal Comfort Measure Last Admin: 12/28/20 22:06 Dose: 1 applic Documented by: Bisacodyl (Bisacodyl 10 Mg Supp) 10 mg RECTAL ONETIME PRN PRN Reason: Constipation Butorphanol Tartrate (Butorphanol 1 Mg/Ml Sdv) 1 mg IVPUSH Q1H PRN PRN Reason: Pain Carboprost Tromethamine (Carboprost Tromethamine 250 Mcg/1 Ml Amp) 250 mcg IM ASDIRECTED PRN PRN Reason: Post Hemorrhage Docusate Sodium (Docusate Sodium 100 Mg Cap) 100 mg PO BID PRN PRN Reason: Constipation Last Admin: 12/29/20 21:36 Dose: 100 mg Documented by: Emollient Ointment (Lanolin 100% Cream 7 Gm Tube) 0 gm TOP ASDIRECTED PRN PRN Reason: Sore Nipples Lactated Ringer's (Ringers, Lactated) 1,000 mls @ 150 mls/hr IV ASDIRECTED FREDO Last Admin: 12/28/20 10:17 Dose: 999 mls/hr Documented by: Oxytocin/Sodium Chloride (Oxytocin 30 Unit/500 Ml-Ns) 30 unit in 500 mls @ 999 mls/hr IV TITRATE FREDO Tranexamic Acid 1,000 mg/ (Sodium Chloride) 110 mls @ 660 mls/hr IV ONETIME PRN PRN Reason: Bleeding Oxytocin/Sodium Chloride (Oxytocin 30 Unit/500 Ml-Ns) 30 unit in 500 mls @ 2 mls/hr IV TITRATE FREDO; Protocol Last Titration: 12/28/20 18:05 Dose: 999 munits/min, 999 mls/hr Documented by: Ibuprofen (Ibuprofen 400 Mg Tab) 400 mg PO Q4H PRN PRN Reason: Pain Ibuprofen (Ibuprofen 800 Mg Tab) 800 mg PO Q6H PRN PRN Reason: Pain Last Admin: 12/29/20 21:37 Dose: 800 mg Documented by: Labetalol HCl (Labetalol 100 Mg/20 Ml Mdv) 20 mg IVPUSH Q10M PRN; Protocol PRN Reason: Hypertension Misoprostol (Misoprostol 200 Mcg Tab) 200 mcg PO ONETIME PRN PRN Reason: Post Hemorrhage Nifedipine (Nifedipine 30 Mg Tab.Er) 30 mg PO DAILY [facility] Last Admin: 12/29/20 23:58 Dose: 30 mg Documented by: Ondansetron HCl (Ondansetron 4 Mg/2 Ml Sdv) 4 mg IVPUSH Q6H PRN PRN Reason: Nausea/Vomiting Oxycodone HCl (Oxycodone 5 Mg Tab) 5 mg PO Q2H PRN PRN Reason: Pain Sodium Chloride (Sodium Chloride 0.9% 10 Ml Syringe) 10 ml FLUSH ASDIRECTED PRN PRN Reason: Keep Vein Open Sodium Chloride (Sodium Chloride 0.9% 2.5 Ml Syringe) 2.5 ml FLUSH ASDIRECTED PRN PRN Reason: Keep Vein Open Sodium Chloride (Sodium Chloride 0.9% 10 Ml Sdv) 10 ml IV ASDIRECTED PRN PRN Reason: IV Use Sterile Water (Water For Irrigation,Sterile 1,000 Ml Container) 1,000 ml IRR ASDIRECTED PRN PRN Reason: delivery Witch Nancy (Witch Nancy Medicated Pads 40/Jar) 1 pad TOP ASDIRECTED PRN PRN Reason: comfort care Last Admin: 12/28/20 22:05 Dose: 1 applic Documented by: Discontinued Medications Fentanyl (Fentanyl 100 Mcg/2 Ml Sdv) Confirm Administered Dose 100 mcg .ROUTE .STK-MED ONE Stop: 12/28/20 09:57 Last Admin: 12/29/20 19:51 Dose: Not Given Documented by: Oxytocin/Sodium Chloride (Oxytocin 30 Unit/500 Ml-Ns) Confirm Administered Dose 30 unit in 500 mls @ as directed .ROUTE .STK-MED ONE Stop: 12/28/20 07:26 Last Admin: 12/29/20 19:51 Dose: Not Given Documented by: Ropivacaine (Naropin 0.2%) Confirm Administered Dose 100 mls @ as directed .ROU TE .STK-MED ONE Stop: 12/28/20 09:57 Last Admin: 12/29/20 19:51 Dose: Not Given Documented by: Lidocaine HCl (Lidocaine 1% 50 Ml Mdv) 50 ml INJECT ONETIME PRN PRN Reason: Laceration repair Methylergonovine Maleate (Methylergonovine 0.2 Mg/1 Ml Amp) 0.2 mg IM ASDIRECTED PRN PRN Reason: Post Hemorrhage Misoprostol (Misoprostol 25 Mcg (1/4 Of 100 Mcg) Tab) 25 mcg VAG ONETIME PRN PRN Reason: Cervical Ripening Last Admin: 12/27/20 20:24 Dose: 25 mcg Documented by: Misoprostol (Misoprostol 25 Mcg (1/4 Of 100 Mcg) Tab) 25 mcg VAG Q4H PRN PRN Reason: Cervical Ripening Last Admin: 12/28/20 04:33 Dose: 25 mcg Documented by: Nalbuphine HCl (Nalbuphine 10 Mg/1 Ml Vial) 10 mg IVPUSH Q1H PRN PRN Reason: Pain (severe 7-10) Terbutaline Sulfate (Terbutaline 1 Mg/Ml Sdv) 0.25 mg SUBCUT ASDIRECTED PRN PRN Reason: Tacysystole - Infant Interaction Infant Disposition, : [place] at Bedside Infant Feeding: Bottle Fed Support Person: - Recovery Exam Fundal Tone: Firm Fundal Level: 1 Fingerbreadths Below Umbilicus Fundal Placement: Midline Lochia Amount: Scant Lochia Color: Rubra/Red Perineum Description: Intact, Minimal Bruising/Swelling Other Perinuem Description: 2nd degree laceration Episiotomy/Laceration: None Bladder Status: Voiding Urinary Elimination: Voided - Exam General: Alert Lungs: Clear to Auscultation, Normal Respiratory Effort Cardiovascular: Regular Rate, Regular Rhythm GI/Abdominal Exam: Non-Tender, No Distention Extremities: Normal Range of Motion, Non-Tender, Pedal Edema (trace) Skin: Warm, Dry, Intact Wound/Incisions: Healing Well Neurological: No New Focal Deficit Psy/Mental Status: Normal Mood - Problem List Review Problem List Initiated/Reviewed/Updated: Yes - My Orders Last 24 Hours: My Active Orders 12/29/20 23:45 NIFEdipine [Procardia XL] 30 mg PO DAILY - Assessment Assessment:: PPD 2 status post Gestational HTN - Plan Plan:: Routine cares * Encourage ambulation and fluid intake * Regular diet as tolerated * PO pain medication ordered PRN * Bottlefeeding baby Gestational hypertension * Headache yesterday, resolved with Tylenol * BP's severe range with repeat mild range last evening * Procardia 30mg daily started, BPs improved * Repeat preeclampsia labs within normal limits Dispo: stable. Antihypertensive medication started last evening, next dose due this AM. Will continue to monitor closely today.
[2020-12-30] MEDS: NIFEdipine 30 MG Tab.ER PO SCH (09:07)
--- NOTE | 2020-12-30 13:53 | PCM.SN.2 ---
- Free Text/Narrative Note: Nursing staff called to report elevated temperature of 103.7. At bedside shortly thereafter to evaluate patient. Subjective: Resting in bed, reports chills and appears flushed. Ambulating and voiding without difficulty. Lochia is scant, denies odor. Tolerating regular diet. Has not passed gas or had a bowel movement yet. Denies headache, vision changes, shortness of air, chest pain, nausea/vomiting, abdominal pain or dysuria. Objective: Vital Signs - 8 hr 12/30/20 12/30/20 12/30/20 07:45 09:07 10:22 Temperature [ 99.8 F 99.8 F Temporal] Pulse, 109 H 113 H Peripheral [ Pulse Oximetry] Respiratory 14 14 Rate Blood Pressure 118/74 Blood Pressure 152/89 H [Left Upper Arm ] Blood Pressure 115/73 [Right Upper Arm] O2 Sat by Pulse 96 Oximetry 12/30/20 13:42 Temperature [ 104 F H Temporal] Pulse, 112 H Peripheral [ Pulse Oximetry] Respiratory 16 Rate Blood Pressure Blood Pressure 115/70 [Left Upper Arm ] Blood Pressure [Right Upper Arm] O2 Sat by Pulse 97 Oximetry General: no acute distress, flushed Chest: clear to auscultation, normal respiratory effort Heart: tachycardia, regular rhythm Abdomen: uterine fundus is firm and located 1 fingerbreadth below the umbilicus. Mild diffuse tenderness to lower abdomen, consistent with recent delivery. Extremities: moves all, no pedal edema. Peripheral pulses 2+ Skin: warm, dry, intact. Assessment 35 year old female PPD 2 s/p with fever and tachycardia Plan SEPSIS Core Measures initiated including * IV access obtained * Blood and urine cultures collected * Lactic acid. CMP, magnesium and phosphorous ordered * IVF 1L bolus ordered * Imaging: chest x-ray and pelvic ultrasound to rule-out retained products of conception * Broad spectrum antibiotics ordered. Reviewed case with hospitalist Dr. Gil and recommended Zosyn and Vancomycin. * Scheduled Tylenol 1g q6hrs Will monitor closely on with ongoing interventions as above.
[2020-12-30] MEDS ORDERED: cefTRIAXone 1 GM in Premix Bag 1 BAG IV SCH (14:00)
[2020-12-30] MEDS: Lactated Ringers 1,000 ML IV SCH ×2 (15:15→19:20)
[2020-12-30] MEDS ORDERED: VANCOmycin 2 GM/400 ML 2 GM in Premix Bag 1 BAG IV ONE (15:30)
[2020-12-30 15:31] LABS: BLOOD UREA NITROGEN,BUN 4 mg/dL (7.0-18.0); CARBON DIOXIDE,CO2 24.5 mmol/L (21.0-32.0); CHLORIDE,CL 101 mmol/L (98-107); GLUCOSE RANDOM 90 mg/dL (74-106); POTASSIUM,K 2.8 mmol/L (3.5-5.1); SODIUM,NA 138 mmol/L (136-145)
--- NOTE | 2020-12-30 16:32 | CR ---
INDICATION: Sepsis TECHNIQUE: Single view chest. FINDINGS: The lungs are clear. The heart, mediastinum and pulmonary vessels are of normal size. There is no evidence of pleural disease. IMPRESSION: Negative chest. Dictated by Belia Delvalle MD @ Dec 30 2020 4:29PM Signed by Dr. Belia Delvalle @ Dec 30 2020 4:30PM
[2020-12-30] MEDS: Piperacillin/Tazobactam 3.375 GM in Sodium Chloride 0.9% 50 ML IV SCH (18:37)
--- NOTE | 2020-12-30 18:59 | US ---
INDICATION: Two days post delivery, sepsis, evaluate for retained products of conception. TECHNIQUE: Transabdominal pelvic ultrasound was performed with grayscale and color Doppler imaging. COMPARISON: None FINDINGS: Uterus: 16.6 x 11.1 x 9.2 cm. Normal echotexture of the myometrium. No masses. Endometrium: The endometrium appears minimally heterogeneous and measures between 1.5 and 2.2 cm. No internal color Doppler flow is visualized. Right ovary: 2.8 x 1.4 x 2.5 cm. Normal color Doppler flow is visualized. No masses seen. Left ovary: 3.2 x 2.3 x 1.8 cm. Normal color Doppler and spectral flow is visualized. Cul-de-sac: No free fluid. IMPRESSION: Minimally in heterogeneous endometrium, measuring between 1.5-2.2 cm. No internal color Doppler flow is visualized. Dictated by Eneida Gavin MD @ Dec 30 2020 6:46PM Signed by Dr. Eneida Gavin @ Dec 30 2020 6:56PM
--- NOTE | 2020-12-30 19:16 | PCM.CONS ---
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 Patient states she was feeling well but today she feels more tired and flushed. Lab work reveled leucocytosis, UA positive for esterase. Patient received 1 litre bolus and was started on broad spectrum antibiotics, blood and urine cultures were sent, lactate was normal, cxr was normal, uterine usg was negative for retained poc. Denied dysuria but has some urgency. Denied N/V/D, no cough, chest pain, SOB. Perineal Area Pain Score (Numeric/FACES): 7 uterine/headache Pain Score (Numeric/FACES): 3 - Related Data Allergies/Adverse Reactions: Allergies Allergy/AdvReac Type Severity Reaction Status Date / Time sulfamethoxazole Allergy Rash Verified 12/27/20 16:34 [From ] trimethoprim [From ] Allergy Rash Verified 12/27/20 16:34 Home Medications: Home Meds Ferrous Sulfate, Dried [Iron] 160 mg PO DAILY 12/27/20 [History] Vits #93/Iron Fum/FA [ Formula Tablet] 1 each PO DAILY 12/27/20 [History] Past Medical History - Past Health History Medical/Surgical History: Denies Medical/Surgical History Genitourinary History: Reports: Other (See Below) Other Genitourinary History: History of medullary sponge kidney [employer] History: Reports: Other OB/BYN History: Gestational Hypertension - Infectious Disease History Infectious Disease History: Reports: Chicken Pox - Past Surgical History HEENT Surgical History: Reports: Oral Surgery Other HEENT Surgeries/Procedures: Jarreau teeth removed GI Surgical History: Reports: Appendectomy Female Surgical History: Reports: Breast Implant Other Female Surgeries/Procedures: Breast Augmentation Social & Family History - Family History Family Medical History: No Pertinent Family History Cardiac: Reports: Cardiomyopathy, Stent Other Cardiac Family History: Father heart attack age 56 with 3 stents placed. Mother cardiomyopathy - Tobacco Use Tobacco Use Status *Q: Never Tobacco User Second Hand Smoke Exposure: No - Caffeine Use Caffeine Use: Reports: None - Recreational Drug Use Recreational Drug Use: No - Living Situation & Occupation Living situation: Reports: Occupation: Employed H&P Review of Systems - Review of Systems: Review Of Systems: See Below General: Reports: Fever, Chills, Weakness. Denies: Malaise, Fatigue Pulmonary: Denies: Shortness of Breath, Wheezing Cardiovascular: Denies: Chest Pain, Palpitations, Dyspnea on Exertion Gastrointestinal: Reports: Abdominal Pain. Denies: Anorexia, Black Stool, Bloody Stool, Constipation, Diarrhea, Decreased Appetite Genitourinary: Reports: Frequency, Urgency. Denies: Dysuria, Burning, Pain Musculoskeletal: Denies: Neck Pain, Shoulder Pain Skin: Denies: Jaundice, Mottled, Pallor Psychiatric: Denies: Confusion, Depression, Mood Lability Neurological: Denies: Confusion, Dizziness, Headache Exam - Exam Exam: See Below - Vital Signs Vital Signs: Last Vital Signs Temp 38.2 C H 12/30/20 17:25 Pulse 116 H 12/30/20 17:05 Resp 14 12/30/20 17:05 BP 122/65 12/30/20 17:05 Pulse Ox 97 12/30/20 17:05 Weight: 86.183 kg - Exam General: Alert, Oriented, Mild Distress Neck: Supple, Trachea Midline Lungs: Clear to Auscultation, Normal Respiratory Effort Cardiovascular: Regular Rate, Regular Rhythm, Normal S1, Normal S2 GI/Abdominal Exam: Normal Bowel Sounds, Soft, Non-Tender, Distended, Hepatomegaly. No: Splenomegaly Back Exam: Normal Inspection, CVA Tenderness (L), CVA Tenderness (R) Extremities: Normal Inspection, Normal Range of Motion - Patient Data Lab Results Last 24 hrs: Laboratory Results - last 24 hr 12/30/20 12/30/20 12/30/20 Range/Units 12:21 14:05 14:24 WBC 14.28 H (4.0-11.0) K/uL RBC 3.66 L (4.30-5.90) M/uL Hgb 10.4 L (12.0-16.0) g/dL Hct 32.0 L (36.0-46.0) % MCV 87.4 (80.0-98.0) fL MCH 28.4 (27.0-32.0) pg MCHC 32.5 (31.0-37.0) g/dL RDW Std Deviation 42.2 (28.0-62.0) fl RDW Coeff of Matheus 14 (11.0-15.0) % Plt Count 242 (150-400) K/uL MPV 10.40 (7.40-12.00) fL Lactate 0.9 (0.20-2.00) mmol/L Sodium (136-145) mmol/L Potassium (3.5-5.1) mmol/L Chloride (98-107) mmol/L Carbon Dioxide (21.0-32.0) mmol/L BUN (7.0-18.0) mg/dL Creatinine (0.6-1.0) mg/dL Est Cr Clr Drug Dosing mL/min Estimated GFR (MDRD) ml/min Glucose (74-106) mg/dL Calcium (8.5-10.1) mg/dL Phosphorus (2.6-4.7) mg/dL Magnesium (1.8-2.4) mg/dL Total Bilirubin (0.2-1.0) mg/dL AST (15-37) IU/L ALT (14-63) IU/L Alkaline Phosphatase (46-116) U/L Total Protein (6.4-8.2) g/dL Albumin (3.4-5.0) g/dL Globulin (2.6-4.0) g/dL Albumin/Globulin Ratio (0.9-1.6) Urine Color YELLOW Urine Appearance SLT CLOUDY Urine pH 7.0 (5.0-8.0) Ur Specific Hudson 1.010 (1.001-1.035) Urine Protein NEGATIVE (NEGATIVE) mg/dL Urine Glucose (UA) NEGATIVE (NEGATIVE) mg/dL Urine Ketones NEGATIVE (NEGATIVE) mg/dL Urine Occult Blood LARGE H (NEGATIVE) Urine Nitrite NEGATIVE (NEGATIVE) Urine Bilirubin NEGATIVE (NEGATIVE) Urine Urobilinogen 0.2 (<2.0) EU/dL Ur Leukocyte Esterase SMALL H (NEGATIVE) Urine RBC 10-15 (0-2/HPF) Urine WBC 2-4 (0-5/HPF) Ur Epithelial Cells FEW (NONE-FEW) Urine Bacteria FEW (NEGATIVE) 12/30/20 Range/Units 14:24 WBC (4.0-11.0) K/uL RBC (4.30-5.90) M/uL Hgb (12.0-16.0) g/dL Hct (36.0-46.0) % MCV (80.0-98.0) fL MCH (27.0-32.0) pg MCHC (31.0-37.0) g/dL RDW Std Deviation (28.0-62.0) fl RDW Coeff of Matheus (11.0-15.0) % Plt Count (150-400) K/uL MPV (7.40-12.00) fL Lactate (0.20-2.00) mmol/L Sodium 138 (136-145) mmol/L Potassium 2.8 L (3.5-5.1) mmol/L Chloride 101 (98-107) mmol/L Carbon Dioxide 24.5 (21.0-32.0) mmol/L BUN 4 L (7.0-18.0) mg/dL Creatinine 0.6 (0.6-1.0) mg/dL Est Cr Clr Drug Dosing 99.69 mL/min Estimated GFR (MDRD) > 60.0 ml/min Glucose 90 (74-106) mg/dL Calcium 8.4 L (8.5-10.1) mg/dL Phosphorus 4.0 (2.6-4.7) mg/dL Magnesium 1.2 L (1.8-2.4) mg/dL Total Bilirubin 0.3 (0.2-1.0) mg/dL AST 12 L (15-37) IU/L ALT 15 (14-63) IU/L Alkaline Phosphatase 217 H (46-116) U/L Total Protein 6.8 (6.4-8.2) g/dL Albumin 2.5 L (3.4-5.0) g/dL Globulin 4.3 H (2.6-4.0) g/dL Albumin/Globulin Ratio 0.6 L (0.9-1.6) Urine Color Urine Appearance Urine pH (5.0-8.0) Ur Specific Hudson (1.001-1.035) Urine Protein (NEGATIVE) mg/dL Urine Glucose (UA) (NEGATIVE) mg/dL Urine Ketones (NEGATIVE) mg/dL Urine Occult Blood (NEGATIVE) Urine Nitrite (NEGATIVE) Urine Bilirubin (NEGATIVE) Urine Urobilinogen (<2.0) EU/dL Ur Leukocyte Esterase (NEGATIVE) Urine RBC (0-2/HPF) Urine WBC (0-5/HPF) Ur Epithelial Cells (NONE-FEW) Urine Bacteria (NEGATIVE) Result Diagrams: 12/31/20 05:38 12/31/20 05:38 Sepsis Event Note - Evaluation Sepsis Screening Result: No Definite Risk - Focused Exam Vital Signs: Vital Signs Temp Temp Pulse Resp BP BP BP 12/30/20 17:25 38.2 C H 12/30/20 17:05 116 H 14 122/65 12/30/20 16:05 39.3 C H 120 H 15 131/62 12/30/20 15:05 119 H 16 159/84 H 12/30/20 15:04 40.8 C H 12/30/20 13:42 40 C H 112 H 16 115/70 12/30/20 10:22 37.7 C 113 H 14 115/73 12/30/20 09:07 118/74 12/30/20 07:45 37.7 C 109 H 14 152/89 H Pulse Ox 12/30/20 17:25 12/30/20 17:05 97 12/30/20 16:05 96 12/30/20 15:05 97 12/30/20 15:04 12/30/20 13:42 97 12/30/20 10:22 96 12/30/20 09:07 12/30/20 07:45 Consult PN Assessment/Plan Procedures: Procedures ASSAY OF BLOOD/URIC ACID (12/15/20) BLOOD TYPING SEROLOGIC ABO (05/31/20) BLOOD TYPING SEROLOGIC RH(D) (05/31/20) MARIPOSA DNA DIR PROBE (01/06/19) COMPLETE CBC AUTOMATED (12/07/20) COMPLETE CBC W/AUTO DIFF WBC (12/15/20) COMPREHEN METABOLIC PANEL (12/15/20) CYTOPATH C/V AUTO FLUID REDO (02/16/20) NON-STRESS TEST (12/15/20) MONTOYA VAG DNA DIR PROBE (01/06/19) GLUCOSE TEST (10/26/20) HEPATITIS B SURFACE AG IA (05/31/20) HPV HIGH-RISK TYPES (11/05/18) HPV TYPES 16 & 18 ONLY (11/05/18) METABOLIC PANEL TOTAL CA (05/31/20) MICROBE SUSCEPTIBLE KINJAL (10/02/17) RBC ANTIBODY SCREEN (05/31/20) ROUTINE VENIPUNCTURE (12/15/20) RUBELLA ANTIBODY (05/31/20) STREP B DNA AMP PROBE (12/21/20) SYPHILIS TEST NON-TREP QUAL (10/26/20) TISSUE EXAM BY PATHOLOGIST (01/06/19) TRICHOMONAS VAGIN DIR PROBE (01/06/19) URINE BACTERIA CULTURE (10/02/17) URINE CULTURE/COLONY COUNT (11/05/18) (1) Sepsis SNOMED Code(s): 69693712 Code(s): A41.9 - SEPSIS, UNSPECIFIED ORGANISM Current Visit: Yes (2) Gestational hypertension SNOMED Code(s): 014750755 Code(s): O13.9 - GESTATIONAL HTN W/O SIGNIFICANT PROTEINURIA, UNSP TRIMESTER Current Visit: Yes (3) Vaginal delivery SNOMED Code(s): 816787279 Code(s): O80 - ENCOUNTER FOR FULL-TERM UNCOMPLICATED DELIVERY Current Visit: Yes (4) Hypokalemia SNOMED Code(s): 57786861 Code(s): E87.6 - HYPOKALEMIA Current Visit: Yes (5) Hypomagnesemia SNOMED Code(s): 778999595 Code(s): E83.42 - HYPOMAGNESEMIA Current Visit: Yes (6) Pyelonephritis SNOMED Code(s): 72443690 Code(s): N12 - TUBULO-INTERSTITIAL NEPHRITIS, NOT SPCF ACUTE OR CHRONIC Current Visit: Yes Problem List Initiated/Reviewed/Updated: No My Orders Last 24 Hours: My Active Orders 12/30/20 21:00 Acetaminophen [Tylenol Extra Strength] 500 mg PO Q6H Plan: 35 y/o F s/p NVD, developed sepsis On exam b/l CVA tenderness noted, UA positive Patient likely has pyelonephritis would obtain CT abdomen/pelvis to r/o abscess/stone Would treat with broad spectrum antibiotics till sepsis resolves Administer additional 1L LR, cont maintenance fluids hold off on antihypertensives till sepsis resolves Deescalate antibiotics based on culture results and clinical response f/u on urine cultures and blood cultures SCD for dvt ppx Tylenol as needed for fever/pain Replete magnesium and potassium Check cbc, bmp, mg, phos in AM Rest of the care per primary team. Requesting Provider: Dr. Leyva Date Consult Requested: 12/30/20 Patient History Reviewed: Yes Admission H&P Reviewed: Yes
[2020-12-30] MEDS ORDERED: Lactated Ringers 1,000 ML IV ONE (19:21)
[2020-12-30] MEDS ORDERED: Lactated Ringers 1,000 ML IV SCH (19:45)
[2020-12-30] MEDS ORDERED: Magnesium Sulfate (4.06 MEQ/ML) 5 GM/10 ML SDV IV ONE (20:00)
[2020-12-30] MEDS: Acetaminophen 500 MG Tab PO SCH (20:06)
[2020-12-30] MEDS ORDERED: Magnesium Sulfate/Water 20 GM/500 ML BAG IV ONE (20:30)
[2020-12-30] MEDS: Ibuprofen 400 MG Tab PO PRN (20:37)
[2020-12-30] MEDS ORDERED: Magnesium Sulfate/Water 4 GM/100 ML BAG IV ONE (21:00)
[2020-12-30] MEDS ORDERED: Acetaminophen 500 MG Tab PO SCH (21:00)
[2020-12-30] MEDS: Docusate Sodium 100 MG Cap PO PRN (21:15)
--- NOTE | 2020-12-30 21:29 | CT ---
INDICATION: Two days . Sepsis. Costochondral tenderness. TECHNIQUE: Multiple axial images were obtained from the diaphragm to the symphysis pubis without contrast. Sagittal and coronal re-formatted images were obtained. COMPARISON: None. FINDINGS: There are bilateral breast implants. The visualized portion of the lung bases are clear. The liver appears enlarged with a prominent left lower lobe. The spleen, pancreas, gallbladder and adrenal glands are on remarked. There is faint nephrocalcinosis bilaterally with multiple tiny stones in both kidneys measuring up to 0.2 cm. There is mild bilateral hydronephrosis and hydroureter. There is no definite stone seen in the ureters. The uterus is enlarged consistent with the patient`s recent gravid state. There is no evidence of a bowel obstruction. There is a large amount of stool in the colon. The abdominal aorta is normal in caliber. There is no adenopathy. There is no free fluid in the abdomen or pelvis. IMPRESSION: 1. Mild hydronephrosis bilaterally which may be related patient`s recent gravid state. 2. 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 3. Enlarged uterus consistent patient`s recent gravid state. 4. Large amount of stool in the colon. Please note that all CT scans at this facility use dose modulation, iterative reconstruction, and/or weight-based dosing when appropriate to reduce radiation dose to as low as reasonably achievable. Dictated by Fritz Jacobs MD @ Dec 30 2020 9:20PM Signed by Dr. Fritz Jacobs @ Dec 30 2020 9:27PM
[2020-12-30] MEDS ORDERED: Potassium Chloride Riders 20 MEQ in Premix Bag 1 BAG IV SCH (23:00)
[2020-12-31] MEDS: Piperacillin/Tazobactam 3.375 GM in Sodium Chloride 0.9% 50 ML IV SCH (00:35)
[2020-12-31] MEDS: Ibuprofen 400 MG Tab PO PRN ×3 (00:53→16:16)
[2020-12-31] MEDS ORDERED: Potassium Chloride Riders 40 MEQ in Premix Bag 1 BAG IV ONE (01:50)
[2020-12-31] MEDS: Acetaminophen 500 MG Tab PO SCH ×3 (02:27→18:10)
[2020-12-31 06:09] LABS: BLOOD UREA NITROGEN,BUN 4 mg/dL (7.0-18.0); CARBON DIOXIDE,CO2 25.9 mmol/L (21.0-32.0); CHLORIDE,CL 107 mmol/L (98-107); GLUCOSE RANDOM 96 mg/dL (74-106); POTASSIUM,K 3.1 mmol/L (3.5-5.1); SODIUM,NA 143 mmol/L (136-145)
[2020-12-31] MEDS ORDERED: Potassium Chloride Riders 20 MEQ in Premix Bag 1 BAG IV ONE (06:20)
--- NOTE | 2020-12-31 07:04 | PCM.PNPP ---
- General Info Date of Service: 12/31/20 Admission Dx/Problem (Free Text): Patient Status Order with Admit Dx/Problem 12/27/20 16:23 Patient Status [ADT] Routine 12/27/20 18:54 Patient Status [ADT] Routine Admission Diagnosis/Problem Admission Diagnosis/Problem Subjective Update: Resting comfortably in bed. Reports symptoms of feeling flushed/chills much improved overnight. Lochia decreasing. Ambulating and voiding without difficulty. Denies headaches, visual changes, right upper quadrant pain, pelvic pain, dysuria or malodorous discharge. Bottlefeeding baby. - General Info Date of Service: 12/31/20 - Patient Data Vital Signs - Most Recent: Last Vital Signs Temp 97.6 F 12/31/20 04:06 Pulse 74 12/31/20 04:06 Resp 15 12/31/20 04:06 BP 119/76 12/31/20 04:06 Pulse Ox 97 12/31/20 04:06 Weight - Most Recent: 190 lb Lab Results - Last 24 Hours: Laboratory Results - last 24 hr 12/30/20 12/30/20 12/30/20 Range/Units 12:21 14:05 14:24 WBC 14.28 H (4.0-11.0) K/uL RBC 3.66 L (4.30-5.90) M/uL Hgb 10.4 L (12.0-16.0) g/dL Hct 32.0 L (36.0-46.0) % MCV 87.4 (80.0-98.0) fL MCH 28.4 (27.0-32.0) pg MCHC 32.5 (31.0-37.0) g/dL RDW Std Deviation 42.2 (28.0-62.0) fl RDW Coeff of Matheus 14 (11.0-15.0) % Plt Count 242 (150-400) K/uL MPV 10.40 (7.40-12.00) fL Neut % (Auto) (48.0-80.0) % Lymph % (Auto) (16.0-40.0) % [place] % (Auto) (0.0-15.0) % Eos % (Auto) (0.0-7.0) % Baso % (Auto) (0.0-1.5) % Neut # (Auto) (1.4-5.7) K/uL Lymph # (Auto) (0.6-2.4) K/uL [place] # (Auto) (0.0-0.8) K/uL Eos # (Auto) (0.0-0.7) K/uL Baso # (Auto) (0.0-0.1) K/uL Nucleated RBC % /100WBC Nucleated RBCs # K/uL Lactate 0.9 (0.20-2.00) mmol/L Sodium (136-145) mmol/L Potassium (3.5-5.1) mmol/L Chloride (98-107) mmol/L Carbon Dioxide (21.0-32.0) mmol/L BUN (7.0-18.0) mg/dL Creatinine (0.6-1.0) mg/dL Est Cr Clr Drug Dosing mL/min Estimated GFR (MDRD) ml/min Glucose (74-106) mg/dL Calcium (8.5-10.1) mg/dL Phosphorus (2.6-4.7) mg/dL Magnesium (1.8-2.4) mg/dL Total Bilirubin (0.2-1.0) mg/dL AST (15-37) IU/L ALT (14-63) IU/L Alkaline Phosphatase (46-116) U/L Total Protein (6.4-8.2) g/dL Albumin (3.4-5.0) g/dL Globulin (2.6-4.0) g/dL Albumin/Globulin Ratio (0.9-1.6) Urine Color YELLOW Urine Appearance SLT CLOUDY Urine pH 7.0 (5.0-8.0) Ur Specific [place] 1.010 (1.001-1.035) Urine Protein NEGATIVE (NEGATIVE) mg/dL Urine Glucose (UA) NEGATIVE (NEGATIVE) mg/dL Urine Ketones NEGATIVE (NEGATIVE) mg/dL Urine Occult Blood LARGE H (NEGATIVE) Urine Nitrite NEGATIVE (NEGATIVE) Urine Bilirubin NEGATIVE (NEGATIVE) Urine Urobilinogen 0.2 (<2.0) EU/dL Ur Leukocyte Esterase SMALL H (NEGATIVE) Urine RBC 10-15 (0-2/HPF) Urine WBC 2-4 (0-5/HPF) Ur Epithelial Cells FEW (NONE-FEW) Urine Bacteria FEW (NEGATIVE) 12/30/20 12/31/20 12/31/20 Range/Units 14:24 05:38 05:38 WBC 12.51 H (4.0-11.0) K/uL RBC 3.62 L (4.30-5.90) M/uL Hgb 10.4 L (12.0-16.0) g/dL Hct 32.0 L (36.0-46.0) % MCV 88.4 (80.0-98.0) fL MCH 28.7 (27.0-32.0) pg MCHC 32.5 (31.0-37.0) g/dL RDW Std Deviation 45.8 (28.0-62.0) fl RDW Coeff of Matheus 14 (11.0-15.0) % Plt Count 256 (150-400) K/uL MPV 10.60 (7.40-12.00) fL Neut % (Auto) 73.8 (48.0-80.0) % Lymph % (Auto) 16.9 (16.0-40.0) % [place] % (Auto) 8.5 (0.0-15.0) % Eos % (Auto) 0.6 (0.0-7.0) % Baso % (Auto) 0.2 (0.0-1.5) % Neut # (Auto) 9.2 H (1.4-5.7) K/uL Lymph # (Auto) 2.1 (0.6-2.4) K/uL [place] # (Auto) 1.1 H (0.0-0.8) K/uL Eos # (Auto) 0.1 (0.0-0.7) K/uL Baso # (Auto) 0.0 (0.0-0.1) K/uL Nucleated RBC % 0.0 /100WBC Nucleated RBCs # 0 K/uL Lactate (0.20-2.00) mmol/L Sodium 138 143 (136-145) mmol/L Potassium 2.8 L 3.1 L (3.5-5.1) mmol/L Chloride 101 107 (98-107) mmol/L Carbon Dioxide 24.5 25.9 (21.0-32.0) mmol/L BUN 4 L 4 L (7.0-18.0) mg/dL Creatinine 0.6 0.5 L (0.6-1.0) mg/dL Est Cr Clr Drug Dosing 99.69 119.63 mL/min Estimated GFR (MDRD) > 60.0 > 60.0 ml/min Glucose 90 96 (74-106) mg/dL Calcium 8.4 L 8.0 L (8.5-10.1) mg/dL Phosphorus 4.0 3.5 (2.6-4.7) mg/dL Magnesium 1.2 L 1.8 (1.8-2.4) mg/dL Total Bilirubin 0.3 0.3 (0.2-1.0) mg/dL AST 12 L 10 L (15-37) IU/L ALT 15 15 (14-63) IU/L Alkaline Phosphatase 217 H 182 H (46-116) U/L Total Protein 6.8 6.2 L (6.4-8.2) g/dL Albumin 2.5 L 2.2 L (3.4-5.0) g/dL Globulin 4.3 H 4.0 (2.6-4.0) g/dL Albumin/Globulin Ratio 0.6 L 0.6 L (0.9-1.6) Urine Color Urine Appearance Urine pH (5.0-8.0) Ur Specific [place] (1.001-1.035) Urine Protein (NEGATIVE) mg/dL Urine Glucose (UA) (NEGATIVE) mg/dL Urine Ketones (NEGATIVE) mg/dL Urine Occult Blood (NEGATIVE) Urine Nitrite (NEGATIVE) Urine Bilirubin (NEGATIVE) Urine Urobilinogen (<2.0) EU/dL Ur Leukocyte Esterase (NEGATIVE) Urine RBC (0-2/HPF) Urine WBC (0-5/HPF) Ur Epithelial Cells (NONE-FEW) Urine Bacteria (NEGATIVE) Med Orders - Current: Current Medications Acetaminophen (Acetaminophen 500 Mg Tab) 500 mg PO Q6H [facility] Last Admin: 12/31/20 02:27 Dose: 500 mg Documented by: Benzocaine/Menthol (Benzocaine/Menthol 20%-0.5% [place] 78 Gm Cannister) 78 gm TOP ASDIRECTED PRN PRN Reason: Perineal Comfort Measure Last Admin: 12/28/20 22:06 Dose: 1 applic Documented by: Bisacodyl (Bisacodyl 10 Mg Supp) 10 mg RECTAL ONETIME PRN PRN Reason: Constipation Butorphanol Tartrate (Butorphanol 1 Mg/Ml Sdv) 1 mg IVPUSH Q1H PRN PRN Reason: Pain Carboprost Tromethamine (Carboprost Tromethamine 250 Mcg/1 Ml Amp) 250 mcg IM ASDIRECTED PRN PRN Reason: Post Hemorrhage Docusate Sodium (Docusate Sodium 100 Mg Cap) 100 mg PO BID PRN PRN Reason: Constipation Last Admin: 12/30/20 21:15 Dose: 100 mg Documented by: Emollient Ointment (Lanolin 100% Cream 7 Gm Tube) 0 gm TOP ASDIRECTED PRN PRN Reason: Sore Nipples Lactated Ringer's (Ringers, Lactated) 1,000 mls @ 150 mls/hr IV ASDIRECTED FREDO Last Infusion: 12/30/20 16:16 Dose: Infused Documented by: Oxytocin/Sodium Chloride (Oxytocin 30 Unit/500 Ml-Ns) 30 unit in 500 mls @ 999 mls/hr IV TITRATE FREDO Tranexamic Acid 1,000 mg/ (Sodium Chloride) 110 mls @ 660 mls/hr IV ONETIME PRN PRN Reason: Bleeding Oxytocin/Sodium Chloride (Oxytocin 30 Unit/500 Ml-Ns) 30 unit in 500 mls @ 2 mls/hr IV TITRATE FREDO; Protocol Last Titration: 12/28/20 18:05 Dose: 999 munits/min, 999 mls/hr Documented by: Piperacillin Sod/Tazobactam (Sod 3.375 gm/ Sodium Chloride) 50 mls @ 100 mls/hr IV Q6H [facility] Last Admin: 12/31/20 00:35 Dose: 100 mls/hr Documented by: Vancomycin HCl 1.25 gm/ Sodium (Chloride) 250 mls @ 166.667 mls/hr IV Q12H [facility]EDO Lactated Ringer's (Ringers, Lactated) 1,000 mls @ 200 mls/hr IV ASDIRECTED FREDO Last Admin: 12/30/20 20:55 Dose: 200 mls/hr Documented by: Potassium Chloride 20 meq/ (Premix) 50 mls @ 25 mls/hr IV ONETIME ONE Stop: 12/31/20 08:19 Last Admin: 12/31/20 06:33 Dose: 25 mls/hr Documented by: Ibuprofen (Ibuprofen 400 Mg Tab) 400 mg PO Q4H PRN PRN Reason: Pain Last Admin: 12/31/20 06:41 Dose: 400 mg Documented by: Labetalol HCl (Labetalol 100 Mg/20 Ml Mdv) 20 mg IVPUSH Q10M PRN; Protocol PRN Reason: Hypertension Misoprostol (Misoprostol 200 Mcg Tab) 200 mcg PO ONETIME PRN PRN Reason: Post Hemorrhage Ondansetron HCl (Ondansetron 4 Mg/2 Ml Sdv) 4 mg IVPUSH Q6H PRN PRN Reason: Nausea/Vomiting Oxycodone HCl (Oxycodone 5 Mg Tab) 5 mg PO Q2H PRN PRN Reason: Pain Sodium Chloride (Sodium Chloride 0.9% 10 Ml Syringe) 10 ml FLUSH ASDIRECTED PRN PRN Reason: Keep Vein Open Sodium Chloride (Sodium Chloride 0.9% 2.5 Ml Syringe) 2.5 ml FLUSH ASDIRECTED PRN PRN Reason: Keep Vein Open Sodium Chloride (Sodium Chloride 0.9% 10 Ml Sdv) 10 ml IV ASDIRECTED PRN PRN Reason: IV Use Sterile Water (Water For Irrigation,Sterile 1,000 Ml Container) 1,000 ml IRR ASDIRECTED PRN PRN Reason: delivery Vancomycin HCl (Pharmacy To Dose - Vancomycin) 1 dose .XX ASDIRECTED [facility] Witch Nancy (Witch Nancy Medicated Pads 40/Jar) 1 pad TOP ASDIRECTED PRN PRN Reason: comfort care Last Admin: 12/28/20 22:05 Dose: 1 applic Documented by: Discontinued Medications Acetaminophen (Acetaminophen 500 Mg Tab) 500 mg PO Q4H PRN PRN Reason: Pain Acetaminophen (Acetaminophen 500 Mg Tab) 1,000 mg PO Q4H PRN PRN Reason: Pain Last Admin: 12/30/20 15:04 Dose: 1,000 mg Documented by: Acetaminophen (Acetaminophen 500 Mg Tab) 1,000 mg PO Q6H [facility] Fentanyl (Fentanyl 100 Mcg/2 Ml Sdv) Confirm Administered Dose 100 mcg .ROUTE .STK-MED ONE Stop: 12/28/20 09:57 Last Admin: 12/29/20 19:51 Dose: Not Given Documented by: Oxytocin/Sodium Chloride (Oxytocin 30 Unit/500 Ml-Ns) Confirm Administered Dose 30 unit in 500 mls @ as directed .ROUTE .STK-MED ONE Stop: 12/28/20 07:26 Last Admin: 12/29/20 19:51 Dose: Not Given Documented by: Ropivacaine (Naropin 0.2%) Confirm Administered Dose 100 mls @ as directed .ROUTE .STK-MED ONE Stop: 12/28/20 09:57 Last Admin: 12/29/20 19:51 Dose: Not Given Documented by: Ceftriaxone Sodium/Dextrose 1 (gm/ Premix) 50 mls @ 100 mls/hr IV Q24H [facility] Vancomycin HCl 2 gm/ Premix 400 mls @ 200 mls/hr IV ONETIME ONE Stop: 12/30/20 17:29 Last Admin: 12/30/20 16:07 Dose: 200 mls/hr Documented by: Lactated Ringer's (Ringers, Lactated) 1,000 mls @ 999 mls/hr IV .BOLUS ONE Stop: 12/30/20 20:21 Last Admin: 12/30/20 19:50 Dose: 999 mls/hr Documented by: Magnesium Sulfate (Magnesium Sulfate In Water 4 Gm/100 Ml) 4 gm in 100 mls @ 50 mls/hr IV ONETIME ONE Stop: 12/30/20 22:59 Last Admin: 12/30/20 20:55 Dose: 50 mls/hr Documented by: Potassium Chloride 20 meq/ (Premix) 50 mls @ 25 mls/hr IV ASDIRECTED [facility] Stop: 12/31/20 00:59 Potassium Chloride 40 meq/ (Premix) 100 mls @ 25 mls/hr IV ASDIRECTED [facility] Stop: 12/30/20 04:59 Potassium Chloride 40 meq/ (Premix) 100 mls @ 25 mls/hr IV ONETIME ONE Stop: 12/31/20 05:49 Last Admin: 12/31/20 02:26 Dose: 25 mls/hr Documented by: Ibuprofen (Ibuprofen 800 Mg Tab) 800 mg PO Q6H PRN PRN Reason: Pain Last Admin: 12/29/20 21:37 Dose: 800 mg Documented by: Lidocaine HCl (Lidocaine 1% 50 Ml Mdv) 50 ml INJECT ONETIME PRN PRN Reason: Laceration repair Magnesium Sulfate (Magnesium Sulfate (4.06 Meq/Ml) 5 Gm/10 Ml Sdv) 4 gm IV ONETIME ONE Stop: 12/30/20 20:01 Last Admin: 12/31/20 01:25 Dose: Not Given Documented by: Methylergonovine Maleate (Methylergonovine 0.2 Mg/1 Ml Amp) 0.2 mg IM ASDIRECTED PRN PRN Reason: Post Hemorrhage Misoprostol (Misoprostol 25 Mcg (1/4 Of 100 Mcg) Tab) 25 mcg VAG ONETIME PRN PRN Reason: Cervical Ripening Last Admin: 12/27/20 20:24 Dose: 25 mcg Documented by: Misoprostol (Misoprostol 25 Mcg (1/4 Of 100 Mcg) Tab) 25 mcg VAG Q4H PRN PRN Reason: Cervical Ripening Last Admin: 12/28/20 04:33 Dose: 25 mcg Documented by: Nalbuphine HCl (Nalbuphine 10 Mg/1 Ml Vial) 10 mg IVPUSH Q1H PRN PRN Reason: Pain (severe 7-10) Nifedipine (Nifedipine 30 Mg Tab.Er) 30 mg PO DAILY FREDO Last Admin: 12/30/20 09:07 Dose: 30 mg Documented by: Terbutaline Sulfate (Terbutaline 1 Mg/Ml Sdv) 0.25 mg SUBCUT ASDIRECTED PRN PRN Reason: Tacysystole - Interaction Disposition, : [place] to Nursery Feeding: Bottle Fed Support Person: - Recovery Exam Fundal Tone: Firm Fundal Level: At Umbilicus Fundal Placement: Midline Lochia Amount: Scant Lochia Color: Rubra/Red Perineum Description: Intact, Minimal Bruising/Swelling Other Perinuem Description: 2nd degree laceration Episiotomy/Laceration: None Bladder Status: Voiding Urinary Elimination: Voided - Exam General: Alert Lungs: Clear to Auscultation, Normal Respiratory Effort Cardiovascular: Regular Rate, Regular Rhythm GI/Abdominal Exam: Soft, Non-Tender, Other (right CVA tenderness, mild) Extremities: Normal Inspection, Non-Tender, No Pedal Edema Skin: Warm, Dry, Intact Neurological: No New Focal Deficit Psy/Mental Status: Normal Mood - Problem List Review Problem List Initiated/Reviewed/Updated: Yes - My Orders Last 24 Hours: My Active Orders 12/30/20 13:57 Blood Culture x2 Reflex Set [OM.PC] Stat 12/30/20 13:59 Blood Culture x2 Reflex Set [OM.PC] Stat 12/30/20 14:05 CULTURE URINE [RM] Routine 12/30/20 14:24 CULTURE BLOOD [BC] Stat 12/30/20 15:02 CULTURE BLOOD [BC] Stat 12/30/20 15:15 Pharmacy to Dose - Vancomycin 1 dose .XX ASDIRECTED 12/30/20 16:00 Piperacillin/Tazobactam [Piperacil-Tazobact] 3.375 gm Sodium Chloride 0.9% [Normal Saline] 50 ml IV Q6H 12/30/20 19:22 Consult to Physician [CONS] Stat 12/30/20 19:27 Notify Provider Consults [RC] ASDIRECTED 12/30/20 19:45 Lactated Ringers [Ringers, Lactated] 1,000 ml IV ASDIRECTED 12/31/20 09:00 Vancomycin 1.25 gm Sodium Chloride 0.9% [Normal Saline (AdvBag)] 250 ml IV Q12H - Assessment Assessment:: PPD 3 status post Gestational HTN Suspected pyelonephritis - Plan Plan:: Routine cares * Encourage ambulation and fluid intake * Regular diet as tolerated * PO pain medication ordered PRN * Bottlefeeding baby Gestational hypertension * Asymptomatic * BP's normotensive to mild range overnight * Procardia 30mg daily- held due to infection * Repeat preeclampsia labs within normal limits SEPSIS Core Measures initiated including * IV access obtained * Blood and urine cultures collected, results pending * Labs - Lactic acid within normal limits - WBC 15 > 14.28 > 12.5 - Potassium 2.8 > 3.1 s/p replacement - Magnesium 1.2 > 1.8 s/p replacement * s/p IVF 1L bolus x2, continue 200cc/hr maintenance fluids * Imaging - Chest x-ray within normal limits - Pelvic ultrasound: no evidence of retained products - Abdominal/pelvic CT scan: no evidence of abscess * Continue broad spectrum antibiotics x24hrs- Zosyn and Vancomycin. * Scheduled Tylenol 1g q6hrs * Hold antihypertensive medication unless BP >160/110 Dispo: stable, improving. Plan to continue IV antibiotics x24hrs and await urine culture results. Plan to transition to PO antibiotics later this evening pending patient's status.
[2020-12-31] MEDS: Piperacillin/Tazobactam 3.375 GM in Sodium Chloride 0.9% 100 ML IV SCH ×3 (09:23→21:30)
[2020-12-31] MEDS ORDERED: Potassium Chloride 20 MEQ Tab.ER PO ONE (15:12)
--- NOTE | 2020-12-31 15:16 | PCM.CONSN ---
- General Info Date of Service: 12/31/20 - Review of Systems Systems Review Comment:: patient denies any fevers, chills, or flank pain. feeling much better. - Patient Data Vitals - Most Recent: Last Vital Signs Temp 36.3 C 12/31/20 12:00 Pulse 96 12/31/20 12:00 Resp 15 12/31/20 12:00 BP 116/84 12/31/20 12:00 Pulse Ox 98 12/31/20 12:00 Weight - Most Recent: 86.183 kg Lab Results Last 24 Hours: Laboratory Results - last 24 hr 12/30/20 12/31/20 12/31/20 Range/Units 14:24 05:38 05:38 WBC 12.51 H (4.0-11.0) K/uL RBC 3.62 L (4.30-5.90) M/uL Hgb 10.4 L (12.0-16.0) g/dL Hct 32.0 L (36.0-46.0) % MCV 88.4 (80.0-98.0) fL MCH 28.7 (27.0-32.0) pg MCHC 32.5 (31.0-37.0) g/dL RDW Std Deviation 45.8 (28.0-62.0) fl RDW Coeff of Matheus 14 (11.0-15.0) % Plt Count 256 (150-400) K/uL MPV 10.60 (7.40-12.00) fL Neut % (Auto) 73.8 (48.0-80.0) % Lymph % (Auto) 16.9 (16.0-40.0) % Worth % (Auto) 8.5 (0.0-15.0) % Eos % (Auto) 0.6 (0.0-7.0) % Baso % (Auto) 0.2 (0.0-1.5) % Neut # (Auto) 9.2 H (1.4-5.7) K/uL Lymph # (Auto) 2.1 (0.6-2.4) K/uL Worth # (Auto) 1.1 H (0.0-0.8) K/uL Eos # (Auto) 0.1 (0.0-0.7) K/uL Baso # (Auto) 0.0 (0.0-0.1) K/uL Nucleated RBC % 0.0 /100WBC Nucleated RBCs # 0 K/uL Sodium 138 143 (136-145) mmol/L Potassium 2.8 L 3.1 L (3.5-5.1) mmol/L Chloride 101 107 (98-107) mmol/L Carbon Dioxide 24.5 25.9 (21.0-32.0) mmol/L BUN 4 L 4 L (7.0-18.0) mg/dL Creatinine 0.6 0.5 L (0.6-1.0) mg/dL Est Cr Clr Drug Dosing 99.69 119.63 mL/min Estimated GFR (MDRD) > 60.0 > 60.0 ml/min Glucose 90 96 (74-106) mg/dL Calcium 8.4 L 8.0 L (8.5-10.1) mg/dL Phosphorus 4.0 3.5 (2.6-4.7) mg/dL Magnesium 1.2 L 1.8 (1.8-2.4) mg/dL Total Bilirubin 0.3 0.3 (0.2-1.0) mg/dL AST 12 L 10 L (15-37) IU/L ALT 15 15 (14-63) IU/L Alkaline Phosphatase 217 H 182 H (46-116) U/L Total Protein 6.8 6.2 L (6.4-8.2) g/dL Albumin 2.5 L 2.2 L (3.4-5.0) g/dL Globulin 4.3 H 4.0 (2.6-4.0) g/dL Albumin/Globulin Ratio 0.6 L 0.6 L (0.9-1.6) Nick Results Last 24 Hours: Microbiology 12/30/20 15:02 Aerobic Blood Culture - Preliminary Blood - Venous - Lab Draw NO GROWTH AFTER 1 DAY Anaerobic Blood Culture - Preliminary NO GROWTH AFTER 1 DAY 12/30/20 14:24 Aerobic Blood Culture - Preliminary Blood - Venous NO GROWTH AFTER 1 DAY Anaerobic Blood Culture - Preliminary NO GROWTH AFTER 1 DAY Med Orders - Current: Current Medications Acetaminophen (Acetaminophen 500 Mg Tab) 500 mg PO Q6H [facility] Last Admin: 12/31/20 08:15 Dose: 500 mg Documented by: Benzocaine/Menthol (Benzocaine/Menthol 20%-0.5% [place] 78 Gm Cannister) 78 gm TOP ASDIRECTED PRN PRN Reason: Perineal Comfort Measure Last Admin: 12/28/20 22:06 Dose: 1 applic Documented by: Bisacodyl (Bisacodyl 10 Mg Supp) 10 mg RECTAL ONETIME PRN PRN Reason: Constipation Butorphanol Tartrate (Butorphanol 1 Mg/Ml Sdv) 1 mg IVPUSH Q1H PRN PRN Reason: Pain Carboprost Tromethamine (Carboprost Tromethamine 250 Mcg/1 Ml Amp) 250 mcg IM ASDIRECTED PRN PRN Reason: Post Hemorrhage Docusate Sodium (Docusate Sodium 100 Mg Cap) 100 mg PO BID PRN PRN Reason: Constipation Last Admin: 12/30/20 21:15 Dose: 100 mg Documented by: Emollient Ointment (Lanolin 100% Cream 7 Gm Tube) 0 gm TOP ASDIRECTED PRN PRN Reason: Sore Nipples Oxytocin/Sodium Chloride (Oxytocin 30 Unit/500 Ml-Ns) 30 unit in 500 mls @ 999 mls/hr IV TITRATE [facility] Tranexamic Acid 1,000 mg/ (Sodium Chloride) 110 mls @ 660 mls/hr IV ONETIME PRN PRN Reason: Bleeding Oxytocin/Sodium Chloride (Oxytocin 30 Unit/500 Ml-Ns) 30 unit in 500 mls @ 2 mls/hr IV TITRATE [facility]; Protocol Last Titration: 12/28/20 18:05 Dose: 999 munits/min, 999 mls/hr Documented by: Piperacillin Sod/Tazobactam (Sod 3.375 gm/ Sodium Chloride) 100 mls @ 200 mls/hr IV Q6H [facility] Last Admin: 12/31/20 09:23 Dose: 200 mls/hr Documented by: Vancomycin HCl 1.25 gm/ Sodium (Chloride) 250 mls @ 166.667 mls/hr IV Q8H [facility] Last Admin: 12/31/20 09:55 Dose: 166.667 mls/hr Documented by: Ibuprofen (Ibuprofen 400 Mg Tab) 400 mg PO Q4H PRN PRN Reason: Pain Last Admin: 12/31/20 06:41 Dose: 400 mg Documented by: Labetalol HCl (Labetalol 100 Mg/20 Ml Mdv) 20 mg IVPUSH Q10M PRN; Protocol PRN Reason: Hypertension Misoprostol (Misoprostol 200 Mcg Tab) 200 mcg PO ONETIME PRN PRN Reason: Post Hemorrhage Ondansetron HCl (Ondansetron 4 Mg/2 Ml Sdv) 4 mg IVPUSH Q6H PRN PRN Reason: Nausea/Vomiting Oxycodone HCl (Oxycodone 5 Mg Tab) 5 mg PO Q2H PRN PRN Reason: Pain Sodium Chloride (Sodium Chloride 0.9% 10 Ml Syringe) 10 ml FLUSH ASDIRECTED PRN PRN Reason: Keep Vein Open Sodium Chloride (Sodium Chloride 0.9% 2.5 Ml Syringe) 2.5 ml FLUSH ASDIRECTED PRN PRN Reason: Keep Vein Open Sodium Chloride (Sodium Chloride 0.9% 10 Ml Sdv) 10 ml IV ASDIRECTED PRN PRN Reason: IV Use Sterile Water (Water For Irrigation,Sterile 1,000 Ml Container) 1,000 ml IRR ASDIRECTED PRN PRN Reason: delivery Vancomycin HCl (Pharmacy To Dose - Vancomycin) 1 dose .XX ASDIRECTED [facility] [place] (Witch Nancy Medicated Pads 40/Jar) 1 pad TOP ASDIRECTED PRN PRN Reason: comfort care Last Admin: 12/28/20 22:05 Dose: 1 applic Documented by: Discontinued Medications Acetaminophen (Acetaminophen 500 Mg Tab) 500 mg PO Q4H PRN PRN Reason: Pain Acetaminophen (Acetaminophen 500 Mg Tab) 1,000 mg PO Q4H PRN PRN Reason: Pain Last Admin: 12/30/20 15:04 Dose: 1,000 mg Documented by: Acetaminophen (Acetaminophen 500 Mg Tab) 1,000 mg PO Q6H [facility] Fentanyl (Fentanyl 100 Mcg/2 Ml Sdv) Confirm Administered Dose 100 mcg .ROUTE .STK-MED ONE Stop: 12/28/20 09:57 Last Admin: 12/29/20 19:51 Dose: Not Given Documented by: Lactated Ringer's (Ringers, Lactated) 1,000 mls @ 150 mls/hr IV ASDIRECTED [facility] Last Infusion: 12/30/20 16:16 Dose: Infused Documented by: Oxytocin/Sodium Chloride (Oxytocin 30 Unit/500 Ml-Ns) Confirm Administered Dose 30 unit in 500 mls @ as directed .ROUTE .STK-MED ONE Stop: 12/28/20 07:26 Last Admin: 04/16/21 19:51 Dose: Not Given Documented by: Ropivacaine (Naropin 0.2%) Confirm Administered Dose 100 mls @ as directed .ROUTE .STK-MED ONE Stop: 12/28/20 09:57 Last Admin: 12/29/20 19:51 Dose: Not Given Documented by: Ceftriaxone Sodium/Dextrose 1 (gm/ Premix) 50 mls @ 100 mls/hr IV Q24H [facility] Piperacillin Sod/Tazobactam (Sod 3.375 gm/ Sodium Chloride) 50 mls @ 100 mls/hr IV Q6H [facility] Last Admin: 12/31/20 00:35 Dose: 100 mls/hr Documented by: Vancomycin HCl 2 gm/ Premix 400 mls @ 200 mls/hr IV ONETIME ONE Stop: 12/30/20 17:29 Last Admin: 12/30/20 16:07 Dose: 200 mls/hr Documented by: Vancomycin HCl 1.25 gm/ Sodium (Chloride) 250 mls @ 166.667 mls/hr IV Q12H [facility] Lactated Ringer's (Ringers, Lactated) 1,000 mls @ 999 mls/hr IV .BOLUS ONE Stop: 12/30/20 20:21 Last Admin: 12/30/20 19:50 Dose: 999 mls/hr Documented by: Lactated Ringer's (Ringers, Lactated) 1,000 mls @ 200 mls/hr IV ASDIRECTED [facility] Last Admin: 12/30/20 20:55 Dose: 200 mls/hr Documented by: Magnesium Sulfate (Magnesium Sulfate In Water 4 Gm/100 Ml) 4 gm in 100 mls @ 50 mls/hr IV ONETIME ONE Stop: 12/30/20 22:59 Last Admin: 12/30/20 20:55 Dose: 50 mls/hr Documented by: Potassium Chloride 20 meq/ (Premix) 50 mls @ 25 mls/hr IV ASDIRECTED [facility] Stop: 12/31/20 00:59 Potassium Chloride 40 meq/ (Premix) 100 mls @ 25 mls/hr IV ASDIRECTED [facility] Stop: 12/30/20 04:59 Potassium Chloride 40 meq/ (Premix) 100 mls @ 25 mls/hr IV ONETIME ONE Stop: 12/31/20 05:49 Last Admin: 12/31/20 02:26 Dose: 25 mls/hr Documented by: Potassium Chloride 20 meq/ (Premix) 50 mls @ 25 mls/hr IV ONETIME ONE Stop: 12/31/20 08:19 Last Admin: 12/31/20 06:33 Dose: 25 mls/hr Documented by: Ibuprofen (Ibuprofen 800 Mg Tab) 800 mg PO Q6H PRN PRN Reason: Pain Last Admin: 12/29/20 21:37 Dose: 800 mg Documented by: Lidocaine HCl (Lidocaine 1% 50 Ml Mdv) 50 ml INJECT ONETIME PRN PRN Reason: Laceration repair Magnesium Sulfate (Magnesium Sulfate (4.06 Meq/Ml) 5 Gm/10 Ml Sdv) 4 gm IV ONETIME ONE Stop: 12/30/20 20:01 Last Admin: 12/31/20 01:25 Dose: Not Given Documented by: Methylergonovine Maleate (Methylergonovine 0.2 Mg/1 Ml Amp) 0.2 mg IM ASDIRECTED PRN PRN Reason: Post Hemorrhage Misoprostol (Misoprostol 25 Mcg (1/4 Of 100 Mcg) Tab) 25 mcg VAG ONETIME PRN PRN Reason: Cervical Ripening Last Admin: 12/27/20 20:24 Dose: 25 mcg Documented by: Misoprostol (Misoprostol 25 Mcg (1/4 Of 100 Mcg) Tab) 25 mcg VAG Q4H PRN PRN Reason: Cervical Ripening Last Admin: 12/28/20 04:33 Dose: 25 mcg Documented by: Nalbuphine HCl (Nalbuphine 10 Mg/1 Ml Vial) 10 mg IVPUSH Q1H PRN PRN Reason: Pain (severe 7-10) Nifedipine (Nifedipine 30 Mg Tab.Er) 30 mg PO DAILY [facility] Last Admin: 12/30/20 09:07 Dose: 30 mg Documented by: Potassium Chloride (Potassium Chloride 20 Meq Tab.Er) 20 meq PO ONETIME ONE Stop: 12/31/20 15:13 Terbutaline Sulfate (Terbutaline 1 Mg/Ml Sdv) 0.25 mg SUBCUT ASDIRECTED PRN PRN Reason: Tacysystole - Exam General: Alert, Oriented Neck: Supple Lungs: Clear to Auscultation, Normal Respiratory Effort Cardiovascular: Regular Rate, Regular Rhythm Back Exam: No: CVA Tenderness (L), CVA Tenderness (R) Extremities: Non-Tender, No Pedal Edema Skin: Warm, Dry, Intact Neurological: No New Focal Deficit Sepsis Event Note - Evaluation Sepsis Screening Result: No Definite Risk - Focused Exam Vital Signs: Vital Signs Temp Pulse Resp BP Pulse Ox 12/31/20 12:00 36.3 C 96 15 116/84 98 12/31/20 08:10 36.4 C 96 14 110/72 12/31/20 04:06 36.4 C 74 15 119/76 97 Consult PN Assessment/Plan Procedures: Procedures ASSAY OF BLOOD/URIC ACID (12/15/20) BLOOD TYPING SEROLOGIC ABO (05/31/20) BLOOD TYPING SEROLOGIC RH(D) (05/31/20) MARIPOSA DNA DIR PROBE (01/06/19) COMPLETE CBC AUTOMATED (12/07/20) COMPLETE CBC W/AUTO DIFF WBC (12/15/20) COMPREHEN METABOLIC PANEL (12/15/20) CYTOPATH C/V AUTO FLUID REDO (02/16/20) NON-STRESS TEST (12/15/20) MONTOYA VAG DNA DIR PROBE (01/06/19) GLUCOSE TEST (10/26/20) HEPATITIS B SURFACE AG IA (05/31/20) HPV HIGH-RISK TYPES (11/05/18) HPV TYPES 16 & 18 ONLY (11/05/18) METABOLIC PANEL TOTAL CA (05/31/20) MICROBE SUSCEPTIBLE NICK (10/02/17) RBC ANTIBODY SCREEN (05/31/20) ROUTINE VENIPUNCTURE (12/15/20) RUBELLA ANTIBODY (05/31/20) STREP B DNA AMP PROBE (12/21/20) SYPHILIS TEST NON-TREP QUAL (10/26/20) TISSUE EXAM BY PATHOLOGIST (01/06/19) TRICHOMONAS VAGIN DIR PROBE (01/06/19) URINE BACTERIA CULTURE (10/02/17) URINE CULTURE/COLONY COUNT (11/05/18) Problem List Initiated/Reviewed/Updated: Yes Plan: 35 yo female PPD 3 with sepsis from suspected UTI. Treating with broad spectrum antibiotics, cultures pending. She is clinically improving so could deescalate antibiotics soon.
--- NOTE | 2020-12-31 20:20 | PCM.SN.2 ---
- Free Text/Narrative Note: Patient doing well throughout the day, however, noted feeling warm/flushed around 1800 this evening. Temperature 100.4 and pulse 103. Tylenol given and patient has noted improvement along with resolution of fever. Reviewed findings with Dr. Bullock who recommends continuing current IV antibiotics until more information is available per urine culture to narrow spectrum of antibiotics and goal of 24 hours without fever. Previously discussed this plan with patient and significant other. Will continue cares and close monitoring overnight.
[2021-01-01] MEDS: Piperacillin/Tazobactam 3.375 GM in Sodium Chloride 0.9% 100 ML IV SCH (03:35)
[2021-01-01] MEDS: Acetaminophen 500 MG Tab PO SCH ×2 (07:13→07:14)
--- NOTE | 2021-01-01 08:53 | PCM.PNPP ---
- General Info Date of Service: 01/01/21 Subjective Update: Patient states feeling so much better than Friday. Has not had any more episodes of chills/aching or where she felt febrile. Her temperature went up last night around 6 pm. She states she had just been in the bathroom straining quite hard to empty bowels and was sweating from the effort when they checked her temperature. She did not feel achy or febrile at the time. Denies abdominal or back pain> Lochia is minimal. She is not . - Review of Systems General: Reports: No Symptoms HEENT: Denies: Headaches, Sinus Congestion, Sore Throat, Rhinitis Pulmonary: Reports: No Symptoms Cardiovascular: Reports: No Symptoms Gastrointestinal: Reports: Constipation (improving, had BM last night) Genitourinary: Reports: No Symptoms Musculoskeletal: Reports: No Symptoms Skin: Reports: No Symptoms Neurological: Reports: No Symptoms Psychiatric: Reports: No Symptoms - General Info Date of Service: 01/01/21 - Patient Data Vital Signs - Most Recent: Last Vital Signs Temp 36.3 C 01/01/21 08:00 Pulse 83 01/01/21 08:00 Resp 16 01/01/21 08:00 BP 146/94 H 01/01/21 08:00 Pulse Ox 98 01/01/21 08:00 Weight - Most Recent: 86.183 kg Micro Results - Last 24 Hours: Microbiology 12/30/20 15:02 Aerobic Blood Culture - Preliminary Blood - Venous - Lab Draw NO GROWTH AFTER 1 DAY Anaerobic Blood Culture - Preliminary NO GROWTH AFTER 1 DAY 12/30/20 14:24 Aerobic Blood Culture - Preliminary Blood - Venous NO GROWTH AFTER 1 DAY Anaerobic Blood Culture - Preliminary NO GROWTH AFTER 1 DAY Med Orders - Current: Current Medications Acetaminophen (Acetaminophen 500 Mg Tab) 500 mg PO Q6H [facility] Last Admin: 01/01/21 07:14 Dose: Not Given Documented by: Benzocaine/Menthol (Benzocaine/Menthol 20%-0.5% [place] 78 Gm Cannister) 78 gm TOP ASDIRECTED PRN PRN Reason: Perineal Comfort Measure Last Admin: 12/28/20 22:06 Dose: 1 applic Documented by: Bisacodyl (Bisacodyl 10 Mg Supp) 10 mg RECTAL ONETIME PRN PRN Reason: Constipation Last Admin: 12/31/20 16:16 Dose: 10 mg Documented by: Docusate Sodium (Docusate Sodium 100 Mg Cap) 100 mg PO BID PRN PRN Reason: Constipation Last Admin: 12/30/20 21:15 Dose: 100 mg Documented by: Emollient Ointment (Lanolin 100% Cream 7 Gm Tube) 0 gm TOP ASDIRECTED PRN PRN Reason: Sore Nipples Oxytocin/Sodium Chloride (Oxytocin 30 Unit/500 Ml-Ns) 30 unit in 500 mls @ 2 mls/hr IV TITRATE [facility]; Protocol Last Titration: 12/28/20 18:05 Dose: 999 munits/min, 999 mls/hr Documented by: Piperacillin Sod/Tazobactam (Sod 3.375 gm/ Sodium Chloride) 100 mls @ 200 mls/hr IV Q6H [facility] Last Admin: 01/01/21 03:35 Dose: 200 mls/hr Documented by: Vancomycin HCl 1.25 gm/ Sodium (Chloride) 250 mls @ 166.667 mls/hr IV Q8H [facility] Last Admin: 01/01/21 01:06 Dose: 166.667 mls/hr Documented by: Ibuprofen (Ibuprofen 400 Mg Tab) 400 mg PO Q4H PRN PRN Reason: Pain Last Admin: 12/31/20 16:16 Dose: 400 mg Documented by: Labetalol HCl (Labetalol 100 Mg/20 Ml Mdv) 20 mg IVPUSH Q10M PRN; Protocol PRN Reason: Hypertension Oxycodone HCl (Oxycodone 5 Mg Tab) 5 mg PO Q2H PRN PRN Reason: Pain Sodium Chloride (Sodium Chloride 0.9% 10 Ml Syringe) 10 ml FLUSH ASDIRECTED PRN PRN Reason: Keep Vein Open Sodium Chloride (Sodium Chloride 0.9% 2.5 Ml Syringe) 2.5 ml FLUSH ASDIRECTED PRN PRN Reason: Keep Vein Open Sodium Chloride (Sodium Chloride 0.9% 10 Ml Sdv) 10 ml IV ASDIRECTED PRN PRN Reason: IV Use Vancomycin HCl (Pharmacy To Dose - Vancomycin) 1 dose .XX ASDIRECTED [facility] [place] (Witch Nancy Medicated Pads 40/Jar) 1 pad TOP ASDIRECTED PRN PRN Reason: comfort care Last Admin: 12/28/20 22:05 Dose: 1 applic Documented by: Discontinued Medications Acetaminophen (Acetaminophen 500 Mg Tab) 500 mg PO Q4H PRN PRN Reason: Pain Acetaminophen (Acetaminophen 500 Mg Tab) 1,000 mg PO Q4H PRN PRN Reason: Pain Last Admin: 12/30/20 15:04 Dose: 1,000 mg Documented by: Acetaminophen (Acetaminophen 500 Mg Tab) 1,000 mg PO Q6H [facility] Butorphanol Tartrate (Butorphanol 1 Mg/Ml Sdv) 1 mg IVPUSH Q1H PRN PRN Reason: Pain Carboprost Tromethamine (Carboprost Tromethamine 250 Mcg/1 Ml Amp) 250 mcg IM ASDIRECTED PRN PRN Reason: Post Hemorrhage Fentanyl (Fentanyl 100 Mcg/2 Ml Sdv) Confirm Administered Dose 100 mcg .ROUTE .STK-MED ONE Stop: 12/28/20 09:57 Last Admin: 12/29/20 19:51 Dose: Not Given Documented by: Lactated Ringer's (Ringers, Lactated) 1,000 mls @ 150 mls/hr IV ASDIRECTED [facility] Last Infusion: 12/30/20 16:16 Dose: Infused Documented by: Oxytocin/Sodium Chloride (Oxytocin 30 Unit/500 Ml-Ns) 30 unit in 500 mls @ 999 mls/hr IV TITRATE [facility] Tranexamic Acid 1,000 mg/ (Sodium Chloride) 110 mls @ 660 mls/hr IV ONETIME PRN PRN Reason: Bleeding Oxytocin/Sodium Chloride (Oxytocin 30 Unit/500 Ml-Ns) Confirm Administered Dose 30 unit in 500 mls @ as directed .ROUTE .STK-MED ONE Stop: 12/28/20 07:26 Last Admin: 12/29/20 19:51 Dose: Not Given Documented by: Ropivacaine (Naropin 0.2%) Confirm Administered Dose 100 mls @ as directed .ROUTE .STK-MED ONE Stop: 12/28/20 09:57 Last Admin: 12/29/20 19:51 Dose: Not Given Documented by: Ceftriaxone Sodium/Dextrose 1 (gm/ Premix) 50 mls @ 100 mls/hr IV Q24H [facility] Piperacillin Sod/Tazobactam (Sod 3.375 gm/ Sodium Chloride) 50 mls @ 100 mls/hr IV Q6H [facility] Last Admin: 12/31/20 00:35 Dose: 100 mls/hr Documented by: Vancomycin HCl 2 gm/ Premix 400 mls @ 200 mls/hr IV ONETIME ONE Stop: 12/30/20 17:29 Last Admin: 12/30/20 16:07 Dose: 200 mls/hr Documented by: Vancomycin HCl 1.25 gm/ Sodium (Chloride) 250 mls @ 166.667 mls/hr IV Q12H [facility] Lactated Ringer's (Ringers, Lactated) 1,000 mls @ 999 mls/hr IV .BOLUS ONE Stop: 12/30/20 20:21 Last Admin: 12/30/20 19:50 Dose: 999 mls/hr Documented by: Lactated Ringer's (Ringers, Lactated) 1,000 mls @ 200 mls/hr IV ASDIRECTED [facility] Last Admin: 12/30/20 20:55 Dose: 200 mls/hr Documented by: Magnesium Sulfate (Magnesium Sulfate In Water 4 Gm/100 Ml) 4 gm in 100 mls @ 50 mls/hr IV ONETIME ONE Stop: 12/30/20 22:59 Last Admin: 12/30/20 20:55 Dose: 50 mls/hr Documented by: Potassium Chloride 20 meq/ (Premix) 50 mls @ 25 mls/hr IV ASDIRECTED [facility] Stop: 12/31/20 00:59 Potassium Chloride 40 meq/ (Premix) 100 mls @ 25 mls/hr IV ASDIRECTED [facility] Stop: 12/30/20 04:59 Potassium Chloride 40 meq/ (Premix) 100 mls @ 25 mls/hr IV ONETIME ONE Stop: 12/31/20 05:49 Last Admin: 12/31/20 02:26 Dose: 25 mls/hr Documented by: Potassium Chloride 20 meq/ (Premix) 50 mls @ 25 mls/hr IV ONETIME ONE Stop: 12/31/20 08:19 Last Admin: 12/31/20 06:33 Dose: 25 mls/hr Documented by: Ibuprofen (Ibuprofen 800 Mg Tab) 800 mg PO Q6H PRN PRN Reason: Pain Last Admin: 12/29/20 21:37 Dose: 800 mg Documented by: Lidocaine HCl (Lidocaine 1% 50 Ml Mdv) 50 ml INJECT ONETIME PRN PRN Reason: Laceration repair Magnesium Sulfate (Magnesium Sulfate (4.06 Meq/Ml) 5 Gm/10 Ml Sdv) 4 gm IV ONETIME ONE Stop: 12/30/20 20:01 Last Admin: 12/31/20 01:25 Dose: Not Given Documented by: Methylergonovine Maleate (Methylergonovine 0.2 Mg/1 Ml Amp) 0.2 mg IM ASDIRECTED PRN PRN Reason: Post Hemorrhage Misoprostol (Misoprostol 200 Mcg Tab) 200 mcg PO ONETIME PRN PRN Reason: Post Hemorrhage Misoprostol (Misoprostol 25 Mcg (1/4 Of 100 Mcg) Tab) 25 mcg VAG ONETIME PRN PRN Reason: Cervical Ripening Last Admin: 12/27/20 20:24 Dose: 25 mcg Documented by: Misoprostol (Misoprostol 25 Mcg (1/4 Of 100 Mcg) Tab) 25 mcg VAG Q4H PRN PRN Reason: Cervical Ripening Last Admin: 12/28/20 04:33 Dose: 25 mcg Documented by: Nalbuphine HCl (Nalbuphine 10 Mg/1 Ml Vial) 10 mg IVPUSH Q1H PRN PRN Reason: Pain (severe 7-10) Nifedipine (Nifedipine 30 Mg Tab.Er) 30 mg PO DAILY [facility] Last Admin: 12/30/20 09:07 Dose: 30 mg Documented by: Ondansetron HCl (Ondansetron 4 Mg/2 Ml Sdv) 4 mg IVPUSH Q6H PRN PRN Reason: Nausea/Vomiting Potassium Chloride (Potassium Chloride 20 Meq Tab.Er) 20 meq PO ONETIME ONE Stop: 12/31/20 15:13 Last Admin: 12/31/20 15:22 Dose: 20 meq Documented by: Sterile Water (Water For Irrigation,Sterile 1,000 Ml Container) 1,000 ml IRR ASDIRECTED PRN PRN Reason: delivery Terbutaline Sulfate (Terbutaline 1 Mg/Ml Sdv) 0.25 mg SUBCUT ASDIRECTED PRN PRN Reason: Tacysystole - Interaction Infant Disposition, : to Nursery Infant Feeding: Bottle Fed Support Person: - Recovery Exam Fundal Tone: Firm Fundal Level: 3 Fingerbreadths Below Umbilicus Fundal Placement: Midline Lochia Amount: Scant Lochia Color: Rubra/Red Perineum Description: Edematous Other Perinuem Description: 2nd degree laceration Episiotomy/Laceration: None Bladder Status: Nonpalpable, Voiding Urinary Elimination: Voided - Exam General: Alert, Oriented Lungs: Normal Respiratory Effort Cardiovascular: Regular Rate, Regular Rhythm GI/Abdominal Exam: Normal Bowel Sounds, Soft, Non-Tender Extremities: Pedal Edema (trace). No: Agatha's Sign Skin: Warm, Dry, Intact Neurological: No New Focal Deficit Psy/Mental Status: Alert, Normal Affect, Normal Mood Physical Findings Comment:: NO CVA tenderness - Problem List & Annotations (1) Gestational hypertension SNOMED Code(s): 069679572 Code(s): O13.9 - GESTATIONAL HTN W/O SIGNIFICANT PROTEINURIA, UNSP TRIMESTER Status: Acute Current Visit: Yes (2) Vaginal delivery SNOMED Code(s): 271886280 Code(s): O80 - ENCOUNTER FOR FULL-TERM UNCOMPLICATED DELIVERY Status: Acute Current Visit: Yes (3) Pyelonephritis SNOMED Code(s): 09048964 Code(s): N12 - TUBULO-INTERSTITIAL NEPHRITIS, NOT SPCF ACUTE OR CHRONIC Status: Acute Current Visit: Yes - Problem List Review Problem List Initiated/Reviewed/Updated: Yes - My Orders Last 24 Hours: My Active Orders 01/01/21 08:47 CBC WITH AUTO DIFF [HEME] Urgent CMP [COMPREHENSIVE METABOLIC PN,CMP] [CHEM] Urgent - Assessment Assessment:: PPD 4 status post Gestational HTN Suspected pyelonephritis - Plan Plan:: Routine cares * Encourage ambulation and fluid intake * Regular diet as tolerated * PO pain medication ordered PRN * Bottlefeeding baby Gestational hypertension * Asymptomatic * BP's normotensive to mild range overnight * Procardia 30mg daily- held due to infection * SEPSIS Core Measures initiated including * Initial blood cultures negative * Imaging - Chest x-ray within normal limits - Pelvic ultrasound: no evidence of retained products - Abdominal/pelvic CT scan: no evidence of abscess * Continue broad spectrum antibiotics x24hrs- Zosyn and Vancomycin. * Scheduled Tylenol 1g q6hrs * Hold antihypertensive medication unless BP >160/110 Dispo: stable, improving. Plan to continue IV antibiotics x24hrs and await urine culture results. Labs ordered for this am. Will await internists recommendations regarding transitioning to oral antibiotics.
[2021-01-01 09:36] LABS: BLOOD UREA NITROGEN,BUN 5 mg/dL (7.0-18.0); CARBON DIOXIDE,CO2 24.1 mmol/L (21.0-32.0); CHLORIDE,CL 105 mmol/L (98-107); GLUCOSE RANDOM 103 mg/dL (74-106); POTASSIUM,K 3.2 mmol/L (3.5-5.1); SODIUM,NA 139 mmol/L (136-145)
[2021-01-01] MEDS ORDERED: Potassium Chloride 20 MEQ Tab.ER PO ONE (09:47)
[2021-01-01] MEDS ORDERED: Calcium Gluconate 10% 1 GM/10 ML SDV IVPUSH ONE (10:00)
--- NOTE | 2021-01-01 11:26 | PCM.CONSN ---
- General Info Date of Service: 01/01/21 - Review of Systems Systems Review Comment:: feeling 100x better, reports no fever, no flank pain, no dysuria - Patient Data Vitals - Most Recent: Last Vital Signs Temp 36.3 C 01/01/21 08:00 Pulse 83 01/01/21 08:00 Resp 16 01/01/21 08:00 BP 146/94 H 01/01/21 08:00 Pulse Ox 98 01/01/21 08:00 Weight - Most Recent: 86.183 kg Lab Results Last 24 Hours: Laboratory Results - last 24 hr 01/01/21 01/01/21 01/01/21 Range/Units 09:05 09:05 09:05 WBC 9.48 (4.0-11.0) K/uL RBC 3.70 L (4.30-5.90) M/uL Hgb 10.5 L (12.0-16.0) g/dL Hct 32.8 L (36.0-46.0) % MCV 88.6 (80.0-98.0) fL MCH 28.4 (27.0-32.0) pg MCHC 32.0 (31.0-37.0) g/dL RDW Std Deviation 46.5 (28.0-62.0) fl RDW Coeff of Matheus 14 (11.0-15.0) % Plt Count 318 (150-400) K/uL MPV 10.60 (7.40-12.00) fL Neut % (Auto) 65.3 (48.0-80.0) % Lymph % (Auto) 24.3 (16.0-40.0) % [place] % (Auto) 8.2 (0.0-15.0) % Eos % (Auto) 2.1 (0.0-7.0) % Baso % (Auto) 0.1 (0.0-1.5) % Neut # (Auto) 6.2 H (1.4-5.7) K/uL Lymph # (Auto) 2.3 (0.6-2.4) K/uL [place] # (Auto) 0.8 (0.0-0.8) K/uL Eos # (Auto) 0.2 (0.0-0.7) K/uL Baso # (Auto) 0.0 (0.0-0.1) K/uL Nucleated RBC % 0.0 /100WBC Nucleated RBCs # 0 K/uL Sodium 139 (136-145) mmol/L Potassium 3.2 L (3.5-5.1) mmol/L Chloride 105 (98-107) mmol/L Carbon Dioxide 24.1 (21.0-32.0) mmol/L BUN 5 L (7.0-18.0) mg/dL Creatinine 0.7 (0.6-1.0) mg/dL Est Cr Clr Drug Dosing 85.45 mL/min Estimated GFR (MDRD) > 60.0 ml/min Glucose 103 (74-106) mg/dL Calcium 8.0 L (8.5-10.1) mg/dL Total Bilirubin 0.2 (0.2-1.0) mg/dL AST 18 (15-37) IU/L ALT 22 (14-63) IU/L Alkaline Phosphatase 187 H (46-116) U/L Total Protein 6.7 (6.4-8.2) g/dL Albumin 2.4 L (3.4-5.0) g/dL Globulin 4.3 H (2.6-4.0) g/dL Albumin/Globulin Ratio 0.6 L (0.9-1.6) Vancomycin Trough 10.5 H (5.0-10.0) ug/mL Nick Results Last 24 Hours: Microbiology 12/30/20 14:05 Urine Culture - Final Urine, Clean Catch MIXED BERNA 10,000-100,000 CFU/ML 12/30/20 15:02 Aerobic Blood Culture - Preliminary Blood - Venous - Lab Draw NO GROWTH AFTER 1 DAY Anaerobic Blood Culture - Preliminary NO GROWTH AFTER 1 DAY 12/30/20 14:24 Aerobic Blood Culture - Preliminary Blood - Venous NO GROWTH AFTER 1 DAY Anaerobic Blood Culture - Preliminary NO GROWTH AFTER 1 DAY Med Orders - Current: Current Medications Acetaminophen (Acetaminophen 500 Mg Tab) 500 mg PO Q6H [facility] Last Admin: 01/01/21 07:14 Dose: Not Given Documented by: Benzocaine/Menthol (Benzocaine/Menthol 20%-0.5% [place] 78 Gm Cannister) 78 gm TOP ASDIRECTED PRN PRN Reason: Perineal Comfort Measure Last Admin: 12/28/20 22:06 Dose: 1 applic Documented by: Bisacodyl (Bisacodyl 10 Mg Supp) 10 mg RECTAL ONETIME PRN PRN Reason: Constipation Last Admin: 12/31/20 16:16 Dose: 10 mg Documented by: Docusate Sodium (Docusate Sodium 100 Mg Cap) 100 mg PO BID PRN PRN Reason: Constipation Last Admin: 12/30/20 21:15 Dose: 100 mg Documented by: Emollient Ointment (Lanolin 100% Cream 7 Gm Tube) 0 gm TOP ASDIRECTED PRN PRN Reason: Sore Nipples Oxytocin/Sodium Chloride (Oxytocin 30 Unit/500 Ml-Ns) 30 unit in 500 mls @ 2 mls/hr IV TITRATE [facility]; Protocol Last Titration: 12/28/20 18:05 Dose: 999 munits/min, 999 mls/hr Documented by: Piperacillin Sod/Tazobactam (Sod 3.375 gm/ Sodium Chloride) 100 mls @ 200 mls/hr IV Q6H [facility] Last Admin: 01/01/21 03:35 Dose: 200 mls/hr Documented by: Vancomycin HCl 1.25 gm/ Sodium (Chloride) 250 mls @ 166.667 mls/hr IV Q8H [facility] Last Admin: 01/01/21 01:06 Dose: 166.667 mls/hr Documented by: Ibuprofen (Ibuprofen 400 Mg Tab) 400 mg PO Q4H PRN PRN Reason: Pain Last Admin: 12/31/20 16:16 Dose: 400 mg Documented by: Labetalol HCl (Labetalol 100 Mg/20 Ml Mdv) 20 mg IVPUSH Q10M PRN; Protocol PRN Reason: Hypertension Oxycodone HCl (Oxycodone 5 Mg Tab) 5 mg PO Q2H PRN PRN Reason: Pain Sodium Chloride (Sodium Chloride 0.9% 10 Ml Syringe) 10 ml FLUSH ASDIRECTED PRN PRN Reason: Keep Vein Open Sodium Chloride (Sodium Chloride 0.9% 2.5 Ml Syringe) 2.5 ml FLUSH ASDIRECTED PRN PRN Reason: Keep Vein Open Last Admin: 01/01/21 10:12 Dose: 2.5 ml Documented by: Sodium Chloride (Sodium Chloride 0.9% 10 Ml Sdv) 10 ml IV ASDIRECTED PRN PRN Reason: IV Use Vancomycin HCl (Pharmacy To Dose - Vancomycin) 1 dose .XX ASDIRECTED [facility] Witch Nancy (Witch Nancy Medicated Pads 40/Jar) 1 pad TOP ASDIRECTED PRN PRN Reason: comfort care Last Admin: 12/28/20 22:05 Dose: 1 applic Documented by: Discontinued Medications Acetaminophen (Acetaminophen 500 Mg Tab) 500 mg PO Q4H PRN PRN Reason: Pain Acetaminophen (Acetaminophen 500 Mg Tab) 1,000 mg PO Q4H PRN PRN Reason: Pain Last Admin: 12/30/20 15:04 Dose: 1,000 mg Documented by: Acetaminophen (Acetaminophen 500 Mg Tab) 1,000 mg PO Q6H [facility] Butorphanol Tartrate (Butorphanol 1 Mg/Ml Sdv) 1 mg IVPUSH Q1H PRN PRN Reason: Pain Calcium Gluconate (Calcium Gluconate 10% 1 Gm/10 Ml Sdv) 1 gm IVPUSH ONETIME ONE Stop: 01/01/21 10:01 Last Admin: 01/01/21 10:17 Dose: 1 gm Documented by: Carboprost Tromethamine (Carboprost Tromethamine 250 Mcg/1 Ml Amp) 250 mcg IM ASDIRECTED PRN PRN Reason: Post Hemorrhage Fentanyl (Fentanyl 100 Mcg/2 Ml Sdv) Confirm Administered Dose 100 mcg .ROUTE .STK-MED ONE Stop: 12/28/20 09:57 Last Admin: 12/29/20 19:51 Dose: Not Given Documented by: Lactated Ringer's (Ringers, Lactated) 1,000 mls @ 150 mls/hr IV ASDIRECTED [facility] Last Infusion: 12/30/20 16:16 Dose: Infused Documented by: Oxytocin/Sodium Chloride (Oxytocin 30 Unit/500 Ml-Ns) 30 unit in 500 mls @ 999 mls/hr IV TITRATE [facility] Tranexamic Acid 1,000 mg/ (Sodium Chloride) 110 mls @ 660 mls/hr IV ONETIME PRN PRN Reason: Bleeding Oxytocin/Sodium Chloride (Oxytocin 30 Unit/500 Ml-Ns) Confirm Administered Dose 30 unit in 500 mls @ as directed .ROUTE .STK-MED ONE Stop: 12/28/20 07:26 Last Admin: 12/29/20 19:51 Dose: Not Given Documented by: Ropivacaine (Naropin 0.2%) Confirm Administered Dose 100 mls @ as directed .ROUTE .STK-MED ONE Stop: 12/28/20 09:57 Last Admin: 12/29/20 19:51 Dose: Not Given Documented by: Ceftriaxone Sodium/Dextrose 1 (gm/ Premix) 50 mls @ 100 mls/hr IV Q24H [facility] Piperacillin Sod/Tazobactam (Sod 3.375 gm/ Sodium Chloride) 50 mls @ 100 mls/hr IV Q6H [facility] Last Admin: 12/31/20 00:35 Dose: 100 mls/hr Documented by: Vancomycin HCl 2 gm/ Premix 400 mls @ 200 mls/hr IV ONETIME ONE Stop: 12/30/20 17:29 Last Admin: 12/30/20 16:07 Dose: 200 mls/hr Documented by: Vancomycin HCl 1.25 gm/ Sodium (Chloride) 250 mls @ 166.667 mls/hr IV Q12H [facility] Lactated Ringer's (Ringers, Lactated) 1,000 mls @ 999 mls/hr IV .BOLUS ONE Stop: 12/30/20 20:21 Last Admin: 12/30/20 19:50 Dose: 999 mls/hr Documented by: Lactated Ringer's (Ringers, Lactated) 1,000 mls @ 200 mls/hr IV ASDIRECTED [facility] Last Admin: 12/30/20 20:55 Dose: 200 mls/hr Documented by: Magnesium Sulfate (Magnesium Sulfate In Water 4 Gm/100 Ml) 4 gm in 100 mls @ 50 mls/hr IV ONETIME ONE Stop: 12/30/20 22:59 Last Admin: 12/30/20 20:55 Dose: 50 mls/hr Documented by: Potassium Chloride 20 meq/ (Premix) 50 mls @ 25 mls/hr IV ASDIRECTED [facility] Stop: 12/31/20 00:59 Potassium Chloride 40 meq/ (Premix) 100 mls @ 25 mls/hr IV ASDIRECTED [facility] Stop: 12/30/20 04:59 Potassium Chloride 40 meq/ (Premix) 100 mls @ 25 mls/hr IV ONETIME ONE Stop: 12/31/20 05:49 Last Admin: 12/31/20 02:26 Dose: 25 mls/hr Documented by: Potassium Chloride 20 meq/ (Premix) 50 mls @ 25 mls/hr IV ONETIME ONE Stop: 12/31/20 08:19 Last Admin: 12/31/20 06:33 Dose: 25 mls/hr Documented by: Ibuprofen (Ibuprofen 800 Mg Tab) 800 mg PO Q6H PRN PRN Reason: Pain Last Admin: 12/29/20 21:37 Dose: 800 mg Documented by: Lidocaine HCl (Lidocaine 1% 50 Ml Mdv) 50 ml INJECT ONETIME PRN PRN Reason: Laceration repair Magnesium Sulfate (Magnesium Sulfate (4.06 Meq/Ml) 5 Gm/10 Ml Sdv) 4 gm IV ONETIME ONE Stop: 12/30/20 20:01 Last Admin: 12/31/20 01:25 Dose: Not Given Documented by: Methylergonovine Maleate (Methylergonovine 0.2 Mg/1 Ml Amp) 0.2 mg IM ASDIRECTED PRN PRN Reason: Post Hemorrhage Misoprostol (Misoprostol 200 Mcg Tab) 200 mcg PO ONETIME PRN PRN Reason: Post Hemorrhage Misoprostol (Misoprostol 25 Mcg (1/4 Of 100 Mcg) Tab) 25 mcg VAG ONETIME PRN PRN Reason: Cervical Ripening Last Admin: 12/27/20 20:24 Dose: 25 mcg Documented by: Misoprostol (Misoprostol 25 Mcg (1/4 Of 100 Mcg) Tab) 25 mcg VAG Q4H PRN PRN Reason: Cervical Ripening Last Admin: 12/28/20 04:33 Dose: 25 mcg Documented by: Nalbuphine HCl (Nalbuphine 10 Mg/1 Ml Vial) 10 mg IVPUSH Q1H PRN PRN Reason: Pain (severe 7-10) Nifedipine (Nifedipine 30 Mg Tab.Er) 30 mg PO DAILY [facility] Last Admin: 12/30/20 09:07 Dose: 30 mg Documented by: Ondansetron HCl (Ondansetron 4 Mg/2 Ml Sdv) 4 mg IVPUSH Q6H PRN PRN Reason: Nausea/Vomiting Potassium Chloride (Potassium Chloride 20 Meq Tab.Er) 20 meq PO ONETIME ONE Stop: 12/31/20 15:13 Last Admin: 12/31/20 15:22 Dose: 20 meq Documented by: Potassium Chloride (Potassium Chloride 20 Meq Tab.Er) 20 meq PO ONETIME ONE Stop: 01/01/21 09:48 Last Admin: 01/01/21 10:11 Dose: 20 meq Documented by: Sterile Water (Water For Irrigation,Sterile 1,000 Ml Container) 1,000 ml IRR ASDIRECTED PRN PRN Reason: delivery Terbutaline Sulfate (Terbutaline 1 Mg/Ml Sdv) 0.25 mg SUBCUT ASDIRECTED PRN PRN Reason: Tacysystole - Exam General: Alert, Oriented Lungs: Clear to Auscultation, Normal Respiratory Effort Cardiovascular: Regular Rate, Regular Rhythm Extremities: Non-Tender, No Pedal Edema Sepsis Event Note - Evaluation Sepsis Screening Result: No Definite Risk - Focused Exam Vital Signs: Vital Signs Temp Pulse Resp BP Pulse Ox 01/01/21 08:00 36.3 C 83 16 146/94 H 98 01/01/21 04:16 36.6 C 79 16 123/87 98 01/01/21 01:00 36.6 C 89 17 147/94 H 96 Consult PN Assessment/Plan Procedures: Procedures ASSAY OF BLOOD/URIC ACID (12/15/20) BLOOD TYPING SEROLOGIC ABO (05/31/20) BLOOD TYPING SEROLOGIC RH(D) (05/31/20) [place] DNA DIR PROBE (01/06/19) COMPLETE CBC AUTOMATED (12/07/20) COMPLETE CBC W/AUTO DIFF WBC (12/15/20) COMPREHEN METABOLIC PANEL (12/15/20) CYTOPATH C/V AUTO FLUID REDO (02/16/20) NON-STRESS TEST (12/15/20) MONTOYA VAG DNA DIR PROBE (01/06/19) GLUCOSE TEST (10/26/20) HEPATITIS B SURFACE AG IA (05/31/20) HPV HIGH-RISK TYPES (11/05/18) HPV TYPES 16 & 18 ONLY (11/05/18) METABOLIC PANEL TOTAL CA (05/31/20) MICROBE SUSCEPTIBLE NICK (10/02/17) RBC ANTIBODY SCREEN (05/31/20) ROUTINE VENIPUNCTURE (12/15/20) RUBELLA ANTIBODY (05/31/20) STREP B DNA AMP PROBE (12/21/20) SYPHILIS TEST NON-TREP QUAL (10/26/20) TISSUE EXAM BY PATHOLOGIST (01/06/19) TRICHOMONAS VAGIN DIR PROBE (01/06/19) URINE BACTERIA CULTURE (10/02/17) URINE CULTURE/COLONY COUNT (11/05/18) Problem List Initiated/Reviewed/Updated: Yes Plan: 35 yo female s/p vaginal delivery who developed sepsis from suspect UTI. Patient has been afebrile for over 24hrs. Urine cultures growing mixed berna. Blood cultures are no growth to date. I spoke with Dr. Mcgee and agree with discharge on oral antibiotics Augmentin for 12 days.
== END 2021-01-01 13:08 | disposition home or self-care (01) | DRG 560 ==
LOC: MW.OB 16:19 → OBSVTOIN 12-28 18:51 → MW.OB 12-28 20:00
PROVIDERS: ADMIT Obstetrics & Gynecology; ATTEND Obstetrics & Gynecology
PROC: 10E0XZZ Delivery of Products of Conception, External Approach (ICD-10-PCS; principal; 2020-12-28)
PROC: 10907ZC Drainage of Amniotic Fluid, Therapeutic from Products of Conception, Via Natural or Artificial Opening (ICD-10-PCS; 2020-12-28)
PROC: 3E0P7VZ Introduction of Hormone into Female Reproductive, Via Natural or Artificial Opening (ICD-10-PCS; 2020-12-28)
PROC: 3E0R3BZ Introduction of Anesthetic Agent into Spinal Canal, Percutaneous Approach (ICD-10-PCS; 2020-12-28)
DX: O13.4 Gestational [pregnancy-induced] hypertension without significant proteinuria, complicating childbirth (principal); Z37.0 Single live birth; Z88.2 Allergy status to sulfonamides; Z88.1 Allergy status to other antibiotic agents; E87.6 Hypokalemia; O99.62 Diseases of the digestive system complicating childbirth; O85 Puerperal sepsis; N12 Tubulo-interstitial nephritis, not specified as acute or chronic; Z3A.37 37 weeks gestation of pregnancy; Z20.822 Contact with and (suspected) exposure to COVID-19
CPT/HCPCS: 01967; 36415; 59025; 59409; 71045; 71045-26; 74176; 74176-26; 76856; 76856-26; 80053; 80202; 81001; 82803; 83605; 83735; 84100; 84550; 85014; 85018; 85025; 85027; 86592; 86850; 86900; 86901; 87040; 87086; A9270-GY; J0610; J2543; J2590; J2795; J3010; J3370; J3475; J3480; J7050; J7120; U0002